=== PATIENT | female | born 1990 | race Caucasian/White ===

== ENCOUNTER 2016-11-20 07:25 | Emergency (ER) | payer MEDICAID ==
--- NOTE | 2016-11-20 08:18 | ER Document Report ---
ED GI/ - General Information source: Patient TRAVEL OUTSIDE OF THE [place]. IN LAST 30 DAYS: No - HPI Patient complains to provider of: Vaginal bleeding, Vaginal discharge Onset: Yesterday Timing/Duration: Gradual, Worse Quality of pain: Cramping Vaginal bleeding (Compared to normal period): Heavier, Passing clots Para: 1 Associated symptoms: Vaginal discharge <JOEL QUESADA - Last Filed: 11/20/16 08:31> <VERONICA CONTRERAS - Last Filed: 11/20/16 11:03> - General Chief Complaint: Abdominal Pain Stated Complaint: ABDOMINAL PAIN Notes: Patient is a 26-year-old female presenting to the emergency department concerned of vaginal bleeding onset last night. Patient states that at approximately 3 AM she passed a sac with her vaginal bleeding, and her bleeding has worsened since then with multiple other small clots. Patient states that she has been cramping for the past 4-5 days, and now she is experiencing pain in her abdomen and back. Patient has a history of miscarriage, most recent being 04/16/2016. Patient was seen here 09/30/2016 where she had a positive test, but there was nothing visible on the ultrasound. (JOEL QUESADA) - Related Data Allergies/Adverse Reactions: amoxicillin [Amoxicillin] Allergy (Verified 11/20/16 07:30) clindamycin Allergy (Verified 11/20/16 07:30) hydrocortisone Allergy (Verified 11/20/16 07:30) Penicillins Allergy (Verified 11/20/16 07:30) Past Medical History - General Information source: Patient - Social History Smoking Status: Current Every Day Smoker Chew tobacco use (# tins/day): No Frequency of alcohol use: None Drug Abuse: None Family History: Reviewed & Not Pertinent Patient has suicidal ideation: No Patient has homicidal ideation: No Renal/ Medical History: Reports: Other - Miscarriage Psychiatric Medical History: Reports: Hx Anxiety, Hx Depression Past Surgical History: Reports: Hx Section - 2009 emergency - Immunizations Hx Diphtheria, Pertussis, Tetanus Vaccination: Yes <JOEL QUESADA - Last Filed: 11/20/16 08:31> Review of Systems - Review of Systems Constitutional: No symptoms reported EENT: No symptoms reported Cardiovascular: No symptoms reported Respiratory: No symptoms reported Gastrointestinal: See HPI, Abdominal pain - with accompanied back pain Genitourinary: No symptoms reported Female Genitourinary: See HPI, , Vaginal discharge, Vaginal bleeding, Other - Cramping Musculoskeletal: No symptoms reported Skin: No symptoms reported Hematologic/Lymphatic: No symptoms reported Neurological/Psychological: No symptoms reported -: Yes All other systems reviewed and negative <JOEL QUESADA - Last Filed: 11/20/16 08:31> Physical Exam - Vital signs Interpretation: Tachycardic - General General appearance: Alert - HEENT Head: Normocephalic, Atraumatic Eyes: Normal Pupils: PERRL - Respiratory Respiratory status: No respiratory distress Chest status: Nontender Breath sounds: Normal Chest palpation: Normal - Cardiovascular Rhythm: Regular Heart sounds: Normal auscultation Murmur: No - Abdominal Inspection: Obese Distension: No distension Bowel sounds: Normal Tenderness: Tender - Diffuse tenderness to palpation Organomegaly: No organomegaly - Back Back: Normal, Nontender - Extremities General upper extremity: Normal inspection, Nontender, Normal color, Normal ROM , Normal temperature General lower extremity: Normal inspection, Nontender, Normal color, Normal ROM , Normal temperature - Neurological Neuro grossly intact: Yes Cognition: Normal [place] Coma Scale Eye Opening: Spontaneous Saroj Coma Scale Verbal: Oriented [place] Coma Scale Motor: Obeys Commands [place] Coma Scale Total: 15 Speech: Normal - Psychological Associated symptoms: Normal affect, Tearful - Skin Skin Temperature: Warm Skin Moisture: Dry Skin Color: Normal <JOEL QUESADA - Last Filed: 11/20/16 08:31> Course - Laboratory Result Diagrams: 11/20/16 08:44 11/20/16 08:44 <VERONICA CONTRERAS - Last Filed: 11/20/16 11:03> - Vital Signs Vital signs: Temp Pulse Resp BP Pulse Ox 98.5 F 110 H 16 132/76 H 100 11/20/16 07:30 11/20/16 07:30 11/20/16 07:30 11/20/16 07:30 11/20/16 07:30 (JOEL QUESADA) (VERONICA CONTRERAS) - Laboratory Laboratory results interpreted by me: 11/20/16 11/20/16 08:44 08:44 WBC 10.7 H RBC 3.29 L Hgb 10.5 L Hct 30.5 L AST 13 L Total Protein 5.7 L Albumin 3.2 L Beta HCG, Quant 43599.00 H (VERONICA CONTRERAS) Discharge <JOEL QUESADA - Last Filed: 11/20/16 08:31> <VERONICA CONTRERAS - Last Filed: 11/20/16 11:03> - Discharge Clinical Impression: Missed Condition: Stable Disposition: HOME, SELF-CARE Additional Instructions: Miscarriage: You have PROBABLY had a miscarriage (medically called a "spontaneous "). The miscarriage occurred because the fetus did not develop normally. There is nothing you did to cause it, and nothing you could have done to prevent it. About one in four ends in miscarriage. You should rest in bed for two or three days. As there is some risk of infection of the uterus, you should not have intercourse for one week (or until okayed by your physician). You might not have a period for six to eight weeks. You should not become again for at least three months -- the uterus requires time to get back to normal. Call the doctor or return for re-examination if there is heavy or persistent vaginal bleeding, fever, foul discharge, continued cramping pains, or abdominal pain. //////////////////////////////////////////////////////////////////////////////// //////////////////////////////////////////////////////////////////////////////// ///////////////// The ultrasound did not show a , it did show thickened endometrium which is suggestive of a recent and miscarriage. The hormone level was low for dates. You will need repeat hormone level testing to ensure if the level is returning back to zero. Follow-up with your doctor, or with [facility] on Thursday. RETURN TO THE EMERGENCY ROOM IF ANY NEW OR WORSENING SYMPTOMS. Referrals: TERRELL VERONICA MD [Primary Care Provider] - Follow up in 3-5 days [facility] [Provider Group] - Follow up in 3-5 days Scribe Attestation: 11/20/16 11:03 I personally performed the services described in the documentation, reviewed and edited the documentation which was dictated to the scribe in my presence, and it accurately records my words and actions. (VERONICA CONTRERAS) Scribe Documentation <JOEL QUESADA - Last Filed: 11/20/16 08:31> <VERONICA CONTRERAS - Last Filed: 11/20/16 11:03> - Scribe Written by Scribe:: VERONICA CONTRERAS MD, SCRIBE 11/20/16 1059 Acting as scribe for: Dr. Contreras (JOEL QUESADA) (VERONICA CONTRERAS)
[2016-11-20 09:02] LABS: ABSOLUTE EOSINOPHILS # (AUTO) 0.3 10^3/uL (0.0-0.6); ABSOLUTE LYMPHOCYTES (AUTO) 1.7 10^3/uL (0.5-4.7); ABSOLUTE MONOCYTES (AUTO) 0.8 10^3/uL (0.1-1.4); ABSOLUTE NEUT (AUTO) 7.9 10^3/uL (1.7-8.2); BASOPHILS % (AUTO) 0.5 % (0-2); EOSINOPHILS % (AUTO) 3.1 % (0-6); HEMATOCRIT 30.5 % (36.0-47.0); HEMOGLOBIN 10.5 g/dL (12.0-15.5); LYMPHOCYTES % (AUTO) 15.6 % (13-45); MEAN CORPUSCULAR HGB CONC 34.5 g/dL (32.0-36.0); MEAN CORPUSCULAR VOLUME 93 fl (80-97); MONOCYTES % (AUTO) 7.4 % (3-13); RED BLOOD COUNT 3.29 10^6/uL (3.72-5.28); RED CELL DISTRIBUTION WIDTH 12.8 % (11.5-14.0); SEGMENTED NEUTROPHILS % (AUTO) 73.4 % (42-78); WHITE BLOOD COUNT 10.7 10^3/uL (4.0-10.5)
[2016-11-20 09:23] LABS: ALANINE AMINOTRANSFERASE 11 U/L (9-52); ALBUMIN 3.2 g/dL (3.5-5.0); ALKALINE PHOSPHATASE 55 U/L (38-126); ANION GAP 11 (5-19); ASPARTATE AMINO TRANSFERASE 13 U/L (14-36); BILIRUBIN,TOTAL 0.4 mg/dL (0.2-1.3); BLOOD UREA NITROGEN 7 mg/dL (7-20); CALCIUM 8.9 mg/dL (8.4-10.2); CARBON DIOXIDE 23 mmol/L (22-30); CHLORIDE 105 mmol/L (98-107); GLUCOSE 80 mg/dL (75-110); POTASSIUM 3.8 mmol/L (3.6-5.0); SODIUM 138.8 mmol/L (137-145); TOTAL PROTEIN 5.7 g/dL (6.3-8.2)
[2016-11-20] MEDS ORDERED: HYDROCODONE/ACETAMINOPHEN 5-325 MG 6 TAB/DSPK PO PRN (11:10)
[2016-11-20 11:18] VITALS: BP 124/83
== END 2016-11-20 11:18 | disposition home or self-care (01) ==
LOC: ER 07:25
DX: O02.1 Missed abortion (principal); R10.9 Unspecified abdominal pain; N93.9 Abnormal uterine and vaginal bleeding, unspecified; F17.210 Nicotine dependence, cigarettes, uncomplicated
CPT/HCPCS: 36415; 76817; 80053; 84702; 85025; 99284

== ENCOUNTER 2017-03-15 12:08 | Emergency (ER) | payer MEDICAID ==
--- NOTE | 2017-03-15 12:32 | ER Document Report ---
HPI - HPI Patient complains to provider of: insect bite Pain Level: 3 Context: 26 yo female c/o spider bite to left thigh x 1 day. Associated Symptoms: None Exacerbated by: Denies Relieved by: Denies Similar symptoms previously: No - ROS Systems Reviewed and Negative: Yes All other systems reviewed and negative - REPRODUCTIVE Reproductive: DENIES: : - DERM Skin Color: Normal Past Medical History - General Information source: Patient - Social History Smoking Status: Current Every Day Smoker Frequency of alcohol use: None Drug Abuse: None Lives with: Family Family History: Reviewed & Not Pertinent Patient has suicidal ideation: No Patient has homicidal ideation: No Renal/ Medical History: Denies: Hx Peritoneal Dialysis Psychiatric Medical History: Reports: Hx Anxiety, Hx Depression Past Surgical History: Reports: Hx Section - 2009 emergency - Immunizations Hx Diphtheria, Pertussis, Tetanus Vaccination: Yes Vertical Provider Document - CONSTITUTIONAL Agree With Documented VS: Yes Exam Limitations: No Limitations - INFECTION CONTROL TRAVEL OUTSIDE OF THE [place] IN LAST 30 DAYS: No - HEENT HEENT: Atraumatic, PERRLA - NECK Neck: Normal Inspection, Supple - RESPIRATORY Respiratory: Breath Sounds Normal, No Respiratory Distress O2 Sat by Pulse Oximetry: 100 - CARDIOVASCULAR Cardiovascular: Regular Rate, Regular Rhythm - NEURO Level of Consciousness: Awake, Alert - DERM Integumentary: Warm, Dry, Rash - discrete 2mm erosive lesion to left anterior thigh. mild surrounding erythema. no lymphangitis. no drainage. Course - Vital Signs Vital signs: Temp Pulse Resp BP Pulse Ox 98.4 F 80 20 128/67 H 100 03/15/17 12:11 03/15/17 12:11 03/15/17 12:11 03/15/17 12:11 03/15/17 12:11 Discharge - Discharge Clinical Impression: Insect bite Qualifiers: Encounter type: initial encounter Qualified Code(s): W57.XXXA - Bitten or stung by nonvenomous insect and other nonvenomous arthropods, initial encounter Condition: Stable Disposition: HOME, SELF-CARE Instructions: Insect Bites ([facility]), Antibiotic Therapy ([facility]), Antibiotic Ointment Protection ([facility]), Ultram ([facility]) Additional Instructions: clean wound with antibacterial soap and water, apply topical antibiotic after cleaning take oral antibiotics as prescribed follow up with primary care or return to ER for any worsening Prescriptions: Clindamycin HCl [Cleocin HCl] 150 mg PO QID #20 capsule Tramadol HCl [Ultram 50 mg Tablet] 50 mg PO Q4H PRN #15 tablet PRN Reason: Forms: Return to Work
[2017-03-15 12:52] VITALS: BP 126/81
== END 2017-03-15 12:51 | disposition home or self-care (01) ==
LOC: ER 12:08
DX: T63.301A Toxic effect of unspecified spider venom, accidental (unintentional), initial encounter (principal); F17.200 Nicotine dependence, unspecified, uncomplicated
CPT/HCPCS: 99281

== ENCOUNTER → 2017-03-23 | Outpatient (CLI) | payer MEDICAID | LOC: LAB 11:14 | DX: O02.1 Missed abortion (principal) | CPT/HCPCS: 36415; 84702 ==

== ENCOUNTER → 2017-04-08 | Outpatient (CLI) | payer MEDICAID ==
--- NOTE | 2017-04-08 15:30 | RADIOLOGY REPORT (SQ) ---
EXAM DESCRIPTION: U/S OB TRANSVAGINAL W/O DOP COMPLETED DATE/TIME: 04/08/2017 3:18 pm REASON FOR STUDY: ENCOUNTER FOR SUPERVISION OF OTHER NORMAL Z34.81 ENCOUNTER FOR SUPRVSN OF NORMAL , FIRST TRIM COMPARISON: None. TECHNIQUE: Transvaginal static and realtime grayscale images acquired of the pelvis. Additional deisy cted spectral and color Doppler images recorded. All images stored on PACs. bHCG: Not available. LIMITATIONS: None. FINDINGS: FETUS: Living intrauterine . EGA: 7 week 1 day. ATTILA: 11/24/2017. FHR: 131 beats per minute. SUBCHORIONIC BLEED: No. SIZE OF BLEED: Not applicable. UTERUS: No masses. No anomalies. CERVICAL LENGTH: 4.4 cm. Closed. RIGHT ADNEXA: Normal ovary with normal vascular flow. No adnexal free fluid. No adnexal masses. LEFT ADNEXA: Normal ovary with normal vascular flow. No adnexal free fluid. No adnexal masses. FREE FLUID: Small amount of free fluid. OTHER: No other significant finding. IMPRESSION: LIVING INTRAUTERINE . EGA 7 WEEK 1 DAY. Trimester of : First - 0 to 13 weeks. TECHNICAL DOCUMENTATION: JOB ID: [id number] [employer]- All Rights Reserved
== END ==
LOC: RAD 14:23
PROVIDERS: ATTEND Nurse Practitioner Women's Health
DX: Z34.81 Encounter for supervision of other normal pregnancy, first trimester (principal)
CPT/HCPCS: 76817

== ENCOUNTER 2017-04-24 04:27 | Emergency (ER) | payer MEDICAID ==
[2017-04-24] MEDS ORDERED: METOCLOPRAMIDE HCL INJ/PF 10 MG/2 ML SDV IV ONE ×2 (05:09→08:21)
[2017-04-24] MEDS ORDERED: NORMAL SALINE 1000 ML 1,000 ML IV ONE ×2 (05:09)
[2017-04-24] MEDS ORDERED: DIPHENHYDRAMINE HCL 50 MG/ML VIAL IV ONE (05:09)
--- NOTE | 2017-04-24 05:13 | ER Document Report ---
ED Medical Screen (RME) - General Chief Complaint: Vomiting Stated Complaint: VOMITING/7 WEEKS Notes: 27 year old female, at 10 weeks gestation by LMP from home test, reports 3 days of vomiting with abdominal cramping mainly in her upper abdomen. Denies fever. No daily meds. PMH of complicated first , no other medical history reported. She denies alcohol use. TRAVEL OUTSIDE OF THE [place] IN LAST 30 DAYS: No - Related Data Allergies/Adverse Reactions: amoxicillin [Amoxicillin] Allergy (Verified 03/15/17 12:13) clindamycin Allergy (Verified 03/15/17 12:13) hydrocortisone Allergy (Verified 03/15/17 12:13) Penicillins Allergy (Verified 03/15/17 12:13) Past Medical History Renal/ Medical History: Denies: Hx Peritoneal Dialysis Psychiatric Medical History: Reports: Hx Anxiety, Hx Depression Past Surgical History: Reports: Hx Section - 2008 emergency - Immunizations Hx Diphtheria, Pertussis, Tetanus Vaccination: Yes Physical Exam - Vital signs Vitals: Temp Pulse Resp BP Pulse Ox 98.0 F 88 20 135/86 H 98 04/24/17 04:32 04/24/17 04:32 04/24/17 04:32 04/24/17 04:32 04/24/17 04:32 - General General appearance: Anxious - patient vomited in the room - Abdominal Tenderness: Tender - tender in upper abdomen mildly and slightly more tender in LUQ; no guarding Course - Vital Signs Vital signs: Temp Pulse Resp BP Pulse Ox 98.0 F 88 20 135/86 H 98 04/24/17 04:32 04/24/17 04:32 04/24/17 04:32 04/24/17 04:32 04/24/17 04:32
[2017-04-24 05:52] LABS: ALANINE AMINOTRANSFERASE 35 U/L (9-52); ALKALINE PHOSPHATASE 85 U/L (38-126); ANION GAP 18 (5-19); ASPARTATE AMINO TRANSFERASE 25 U/L (14-36); BILIRUBIN,DIRECT 0.3 mg/dL (0.0-0.4); BILIRUBIN,TOTAL 1.1 mg/dL (0.2-1.3); BLOOD UREA NITROGEN 14 mg/dL (7-20); CALCIUM 10.4 mg/dL (8.4-10.2); CARBON DIOXIDE 17 mmol/L (22-30); CHLORIDE 103 mmol/L (98-107); CREATININE RESULT 0.65 mg/dL (0.52-1.25); GLUCOSE 133 mg/dL (75-110); POTASSIUM 3.8 mmol/L (3.6-5.0); SODIUM 138.1 mmol/L (137-145); TOTAL PROTEIN 8.4 g/dL (6.3-8.2)
[2017-04-24 06:07] LABS: HEMATOCRIT 47.8 % (36.0-47.0); HEMOGLOBIN 15.9 g/dL (12.0-15.5); HGB HCT DIFFERENCE -0.1; MEAN CORPUSCULAR HEMOGLOBIN 30.3 pg (27.0-33.4); MEAN CORPUSCULAR HGB CONC 33.3 g/dL (32.0-36.0); MEAN CORPUSCULAR VOLUME 91 fl (80-97); RED BLOOD COUNT 5.24 10^6/uL (3.72-5.28); RED CELL DISTRIBUTION WIDTH 14.6 % (11.5-14.0); WHITE BLOOD COUNT 22.5 10^3/uL (4.0-10.5)
[2017-04-24 06:10] LABS: BASOPHILS % (MANUAL) 0 % (0-2); EOSINOPHILS % (MANUAL) 0 % (0-6); LYMPHOCYTES % (MANUAL) 3 % (13-45); TOTAL CELLS COUNTED 100
[2017-04-24 06:11] LABS: OVALOCYTES SLIGHT; POIKILOCYTOSIS SLIGHT; TOXIC GRANULATION SLIGHT
[2017-04-24] MEDS ORDERED: DEXTROSE 5%-LACTATED RINGERS 1,000 ML IV ONE (06:44)
[2017-04-24 06:47] LABS: APPEARANCE,URINE CLOUDY; BILIRUBIN,URINE SMALL (NEGATIVE); GLUCOSE, URINE NEGATIVE (NEGATIVE); KETONES,URINE 80 mg/dL (NEGATIVE); LEUKOCYTE ESTERASE,URINE NEGATIVE (NEGATIVE); NITRITE,URINE NEGATIVE (NEGATIVE); PROTEIN,URINE 100 mg/dL (NEGATIVE); URINE SPECIFIC GRAVITY 1.034; UROBILINOGEN,URINE NEGATIVE mg/dL (<2.0)
--- NOTE | 2017-04-24 06:47 | ER Document Report ---
ED GI/ - General Mode of Arrival: Ambulatory Information source: Patient TRAVEL OUTSIDE OF THE [place] IN LAST 30 DAYS: No - HPI Patient complains to provider of: Vomiting Onset: Other - 3 days ago Timing/Duration: Sudden, Persistent : 2 Para: 1 Abortions: 0 <JOEL QUESADA - Last Filed: 04/24/17 07:14> <VERONICA CONTRERAS - Last Filed: 04/24/17 10:21> - General Chief Complaint: Vomiting Stated Complaint: VOMITING/7 WEEKS Time Seen by Provider: 04/24/17 06:35 Notes: Patient is a almost 10 weeks female presenting to the emergency department with chief complaint of nausea and vomiting onset approximately 3 days ago. Patient states that usually she only experiences a brief morning sickness, and is able to go about her day after she drinks orange juice and goes for a walk. However, the past 3 days she is not been able to eat very much , and has been dry heaving. Patient states that she feels a lot better after receiving Reglan and 2 L of fluid on arrival to the emergency department. Patient reports quitting smoking approximately 2 weeks ago and having an emergency back in March 2009 (JOEL QUESADA) - Related Data Allergies/Adverse Reactions: amoxicillin [Amoxicillin] Allergy (Verified 03/15/17 12:13) clindamycin Allergy (Verified 03/15/17 12:13) hydrocortisone Allergy (Verified 03/15/17 12:13) Penicillins Allergy (Verified 03/15/17 12:13) Past Medical History - General Information source: Patient - Social History Smoking Status: Former Smoker - Quit 2 weeks ago Family History: Reviewed & Not Pertinent Patient has suicidal ideation: No Patient has homicidal ideation: No Psychiatric Medical History: Reports: Hx Anxiety, Hx Depression Past Surgical History: Reports: Hx Section - March 2009 emergency - Immunizations Hx Diphtheria, Pertussis, Tetanus Vaccination: Yes <JOEL QUESADA - Last Filed: 04/24/17 07:14> Review of Systems - Review of Systems Constitutional: No symptoms reported EENT: No symptoms reported Cardiovascular: No symptoms reported Respiratory: No symptoms reported Gastrointestinal: See HPI, Nausea, Vomiting Genitourinary: No symptoms reported Female Genitourinary: See HPI, Musculoskeletal: No symptoms reported Skin: No symptoms reported Hematologic/Lymphatic: No symptoms reported Neurological/Psychological: No symptoms reported -: Yes All other systems reviewed and negative <JOEL QUESADA - Last Filed: 04/24/17 07:14> Physical Exam - General General appearance: Appears well, Alert - HEENT Head: Normocephalic, Atraumatic Eyes: Normal Pupils: PERRL - Respiratory Respiratory status: No respiratory distress Chest status: Nontender Breath sounds: Normal Chest palpation: Normal - Cardiovascular Rhythm: Regular Heart sounds: Normal auscultation Murmur: No - Abdominal Inspection: Gravid female - soft Distension: No distension Bowel sounds: Normal Tenderness: Nontender Organomegaly: No organomegaly - Back Back: Normal, Nontender - Extremities General upper extremity: Normal inspection, Nontender General lower extremity: Normal inspection, Nontender - Neurological Neuro grossly intact: Yes Cognition: Normal Orientation: AAOx4 Saroj Coma Scale Eye Opening: Spontaneous [place] Coma Scale Verbal: Oriented [place] Coma Scale Motor: Obeys Commands [place] Coma Scale Total: 15 Speech: Normal - Psychological Associated symptoms: Normal affect, Normal mood - Skin Skin Temperature: Warm Skin Moisture: Dry Skin Color: Normal <SANGITAJOEL - Last Filed: 04/24/17 07:14> Course - Laboratory Result Diagrams: 04/24/17 05:25 04/24/17 05:25 <SANGITAJOEL - Last Filed: 04/24/17 07:14> - Laboratory Result Diagrams: 04/24/17 05:25 04/24/17 05:25 <VERONICA CONTRERAS - Last Filed: 04/24/17 10:21> - Re-evaluation Re-evalutation: 04/24/17 10:17 Patient has had 4 L of fluid. The most recent dose of Reglan helped nausea quite a bit. She feels much better and ready to go home. (VERONICA CONTRERAS) - Vital Signs Vital signs: Temp Pulse Resp BP Pulse Ox 98.0 F 88 20 135/86 H 98 04/24/17 04:32 04/24/17 04:32 04/24/17 04:32 04/24/17 04:32 04/24/17 04:32 - Laboratory Laboratory results interpreted by me: 04/24/17 04/24/17 04/24/17 05:25 05:25 06:25 WBC 22.5 H Hgb 15.9 H Hct 47.8 H RDW 14.6 H Seg Neuts % (Manual) 94 H Lymphocytes % (Manual) 3 L Abs Neuts (Manual) 21.2 H Carbon Dioxide 17 L Glucose 133 H Calcium 10.4 H Total Protein 8.4 H Urine Protein 100 H Urine Ketones 80 H Urine Bilirubin SMALL H Urine HCG, Qual POSITIVE H Discharge <JOEL QUESADA - Last Filed: 04/24/17 07:14> <VERONICA CONTRERAS - Last Filed: 04/24/17 10:21> - Discharge Clinical Impression: Hyperemesis gravidarum with dehydration Condition: Stable Disposition: HOME, SELF-CARE Additional Instructions: Hyperemesis Gravidarum: Hyperemesis gravidarum is the medical term for severe vomiting during . We don't know exactly why it occurs, but it's a common problem. Dehydration can occur. This reduces blood flow to the placenta, decreasing the baby's nourishment. The baby will also become dehydrated. There can be harmful changes in blood sodium, potassium, or acid balance. Our goal is to correct, and prevent, dehydration. For severe cases, we give IV fluids. Antinausea medication will be prescribed. (Don't be concerned about " defects" -- the risk to you and your baby from the hyperemesis is the biggest problem. The antinausea medication is very safe at this stage of .) Call the doctor if you have vaginal bleeding, abdominal pain, severe lightheadedness or weakness, or other alarming symptoms. TAKE THE MEDICATION PRESCRIBED FOR NAUSEA. SUPPLEMENT WITH BENADRYL IF NEEDED. FOLLOW UP WITH [facility] IF NOT IMPROVING. RETURN TO THE EMERGENCY ROOM IF ANY NEW OR WORSENING SYMPTOMS. Prescriptions: Metoclopramide HCl [Reglan 10 mg Tablet] 10 mg PO Q4 PRN #20 tablet PRN Reason: Referrals: [facility] [Provider Group] - Follow up as needed Scribe Attestation: 04/24/17 10:20 I personally performed the services described in the documentation, reviewed and edited the documentation which was dictated to the scribe in my presence, and it accurately records my words and actions. (VERONICA CONTRERAS) Scribe Documentation - Scribe Written by Scribe:: Fred Blum, 04/14/2017 0645 acting as scribe for :: Carla <JOEL QUESADA - Last Filed: 04/24/17 07:14>
[2017-04-24] MEDS ORDERED: RINGERS SOLUTION,LACTATED 1,000 ML IV ONE (07:32)
[2017-04-24 10:40] VITALS: BP 121/63
== END 2017-04-24 10:41 | disposition home or self-care (01) ==
LOC: ER 04:27
DX: O21.1 Hyperemesis gravidarum with metabolic disturbance (principal); Z3A.09 9 weeks gestation of pregnancy; Z88.0 Allergy status to penicillin; Z88.3 Allergy status to other anti-infective agents; Z87.891 Personal history of nicotine dependence
CPT/HCPCS: 96376; 99283; 96361; 96375; 96365; 96366; 36415; 85025; 81025; 80053; 81001; J1200; J2765; J7030; J7120

== ENCOUNTER 2017-10-27 12:43 | Outpatient (CLI) | payer MEDICAID ==
--- NOTE | 2017-10-27 14:44 | Non Stress Test Report ---
Non Stress Test Datetime Report Generated by CPN: 10/27/2017 14:44 DEMOGRAPHIC EGA NST: 36.2 INDICATION Indication for Study: Ordered by Provider MONITORING Monitor Explained: Monitor Explained; Test Explained; Patient Verbalized Understanding Monitor Explained: Monitor Explained; Test Explained; Patient Verbalized Understanding Time on Monitor: 10/27/2017 12:53 Time on Monitor: 10/27/2017 12:53 Time off Monitor: 10/27/2017 14:26 NST Duration: 93 NST INTERVENTIONS NST Interventions: PO Hydration; Reposition Patient NST Interventions: PO Hydration; Reposition Patient Physician Notified NST: C Frost CNM BABY A: [id number] BABY A Movement : Present Contraction Frequency : none FHR Baseline : 145 Accelerations : 15X15 Decelerations : None Variability : Moderate 6-25bpm NST Review: Meets Criteria for Reactive NST NST Review and Verified By : Gisell Krueger [facility] NST Results: Reactive NST REPORT Report Trigger: Send Report
== END 2017-10-27 14:35 | disposition home or self-care (01) ==
LOC: LC 12:43
PROVIDERS: ATTEND Obstetrics & Gynecology
PROC: 4A1HXCZ Monitoring of Products of Conception, Cardiac Rate, External Approach (ICD-10-PCS; principal; 2017-10-27)
DX: Z34.93 Encounter for supervision of normal pregnancy, unspecified, third trimester (principal)
CPT/HCPCS: 59025

== ENCOUNTER 2017-10-29 11:38 | Outpatient (CLI) | payer MEDICAID ==
--- NOTE | 2017-10-29 12:25 | Non Stress Test Report ---
Non Stress Test Datetime Report Generated by CPN: 10/29/2017 12:25 DEMOGRAPHIC EGA NST: 36.4 INDICATION Indication for Study: Ordered by Provider VITAL SIGNS Temperature - NST: 97.6 Pulse - NST: 76 RESP - NST: 16 NBPSYS NST: 116 NBPDIA NST: 64 MONITORING Monitor Explained: Monitor Explained; Test Explained; Patient Verbalized Understanding Time on Monitor: 10/29/2017 11:59 Time off Monitor: 10/29/2017 12:18 NST Duration: 19 NST INTERVENTIONS NST Interventions: PO Hydration; Reposition Patient Physician Notified NST: PJunior chatterjee, CNM BABY A: [id number] BABY A Movement : Present Contraction Frequency : none FHR Baseline : 145 Accelerations : 15X15 Decelerations : None Variability : Moderate 6-25bpm NST Review: Meets Criteria for Reactive NST NST Review and Verified By : ANNIKA Barillas Results: Reactive NST REPORT Report Trigger: Send Report
== END 2017-10-29 12:20 | disposition home or self-care (01) ==
LOC: LC 11:38
PROVIDERS: ATTEND Student in an Organized Health Care Education/Training Program
PROC: 4A1HXCZ Monitoring of Products of Conception, Cardiac Rate, External Approach (ICD-10-PCS; principal; 2017-10-29)
DX: O34.212 Maternal care for vertical scar from previous cesarean delivery (principal); Z3A.36 36 weeks gestation of pregnancy
CPT/HCPCS: 59025

== ENCOUNTER 2017-11-03 05:11 | Inpatient (IN) | payer MEDICAID ==
[2017-10-29 11:09] LABS: APPEARANCE,URINE SLIGHTLY-CLOUDY; BILIRUBIN,URINE NEGATIVE (NEGATIVE); COLOR,URINE YELLOW; GLUCOSE, URINE NEGATIVE (NEGATIVE); KETONES,URINE NEGATIVE (NEGATIVE); LEUKOCYTE ESTERASE,URINE NEGATIVE (NEGATIVE); NITRITE,URINE NEGATIVE (NEGATIVE); PROTEIN,URINE NEGATIVE (NEGATIVE); URINE SPECIFIC GRAVITY 1.005; UROBILINOGEN,URINE NEGATIVE mg/dL (<2.0)
[2017-10-29 11:14] LABS: ABSOLUTE EOSINOPHILS # (AUTO) 0.1 10^3/uL (0.0-0.6); ABSOLUTE LYMPHOCYTES (AUTO) 2.1 10^3/uL (0.5-4.7); ABSOLUTE MONOCYTES (AUTO) 0.7 10^3/uL (0.1-1.4); BASOPHILS % (AUTO) 0.4 % (0-2); EOSINOPHILS % (AUTO) 0.8 % (0-6); HEMATOCRIT 37.2 % (36.0-47.0); HEMOGLOBIN 12.7 g/dL (12.0-15.5); LYMPHOCYTES % (AUTO) 17.7 % (13-45); MEAN CORPUSCULAR HEMOGLOBIN 31.5 pg (27.0-33.4); MEAN CORPUSCULAR HGB CONC 34.2 g/dL (32.0-36.0); MEAN CORPUSCULAR VOLUME 92 fl (80-97); RED BLOOD COUNT 4.05 10^6/uL (3.72-5.28); SEGMENTED NEUTROPHILS % (AUTO) 75.1 % (42-78); TOTAL CELLS COUNTED % (AUTO) 100 %; WHITE BLOOD COUNT 11.9 10^3/uL (4.0-10.5)
[2017-10-29 11:26] LABS: URINE AMPHETAMINES SCREEN NEGATIVE; URINE BARBITURATES SCREEN NEGATIVE; URINE BENZODIAZEPINES SCREEN NEGATIVE; URINE COCAINE SCREEN NEGATIVE; URINE MARIJUANA (THC) SCREEN NEGATIVE; URINE METHADONE SCREEN NEGATIVE; URINE PHENCYCLIDINE SCREEN NEGATIVE
[2017-10-29 11:41] LABS: PLATELET COUNT 135 10^3/uL (150-450)
[~2017-11-03 05:11] MED LIST: LACTATED RINGERS 1000 ML IV PRN; LIDOCAINE 0.5% INJ-PF (5 MG/ML) 50 ML SDV SUBCUT PRN; RINGERS SOLUTION,LACTATED 2,000 ML IV PRN
[2017-11-03] MEDS ORDERED: KETAMINE HCL INJ 500 MG/10 ML VIAL ONE (07:20)
[2017-11-03] MEDS ORDERED: OXYTOCIN 10 UNIT/ML VIAL ONE (07:20)
[2017-11-03] MEDS ORDERED: EPHEDRINE SULFATE INJ 50 MG/1 ML AMPULE ONE (07:20)
[2017-11-03] MEDS ORDERED: MIDAZOLAM 2 MG/2 ML INJ ONE (07:21)
[2017-11-03] MEDS ORDERED: OXYTOCIN/NORMAL SALINE 20 UNIT/1,000 ML RTUINJ ONE (07:21)
[2017-11-03] MEDS ORDERED: FENTANYL CITRATE INJ/PF 100 MCG/2 ML AMPUL ONE ×2 (07:21→09:12)
[2017-11-03] MEDS ORDERED: ACETAMINOPHEN 100 ML IV ONE ×2 (07:26→10:00)
[2017-11-03] MEDS: CEFAZOLIN 2 GM/D5W RTU 2 GM/50 ML RTUPB IV ONE ×2 (07:40→11:17)
[2017-11-03] MEDS ORDERED: MORPHINE SULFATE 10 MG/ML INJ IV PRN (08:18)
[2017-11-03] MEDS ORDERED: DIPHENHYDRAMINE HCL 50 MG/ML VIAL IV PRN (08:18)
[2017-11-03] MEDS ORDERED: PROMETHAZINE HCL INJ 25 MG/1 ML VIAL IV PRN ×2 (08:18→09:23)
[2017-11-03] MEDS ORDERED: FENTANYL CITRATE INJ/PF 100 MCG/2 ML AMPUL IV PRN ×3 (08:18)
--- NOTE | 2017-11-03 09:21 | Brief Operative Note ---
BRIEF OPERATIVE REPORT DATE OF SURGERY: 11/03/17 TIME OF SURGERY: 09:00 PREOPERATIVE DIAGNOSIS: H/o Classical Section, 37+2ega, , Abnormal AFP, Normal NIPS POSTOPERATIVE DIAGNOSIS: MATTHEW - delivered SURGEON: ALFREDITO GARNER FINDINGS: classical incision from prior section visible, VMI delivered at 0823, weigth 6#6oz, Apars 8/, IVF 2850ml, UOP 200ml COMPLICATIONS: None ESTIMATED BLOOD LOSS: 600ml TISSUE REMOVED OR ALTERED: placenta and cord - not sent to pathology TECHNICAL PROCEDURE: Repeat LTCS
[2017-11-03] MEDS ORDERED: SIMETHICONE 80 MG TAB.CHEW PO PRN (09:23)
[2017-11-03] MEDS ORDERED: ACETAMINOPHEN 325 MG TABLET PO PRN (09:23)
[2017-11-03] MEDS ORDERED: OXYTOCIN/NORMAL SALINE 20 UNIT/1,000 ML RTUINJ IV PRN (09:23)
[2017-11-03] MEDS ORDERED: MEASLES,MUMPS&RUBELLA VACC/PF 0.5 ML VIAL SUBCUT PRN (09:23)
[2017-11-03] MEDS ORDERED: DIPH/PERTUSS(ACELL)/TETANUS VAC/PF 0.5 ML SYR (>=10YO) IM PRN (09:23)
[2017-11-03] MEDS ORDERED: OXYCODONE-ACETAMINOPHEN 5-325 MG TABLET PO PRN (09:23)
--- NOTE | 2017-11-03 09:44 | PDOC DELIVERY SUMMARY ---
Delivery Summary - Maternal Hx : III Hx # Term Pregnancies: 0 Hx # Pregnancies: 1 Hx Total # of Abortions (Sponateous & Elective): 1 Number of Living Children: 1 ATTILA: 11/22/17 Gestational Age: 37 Risk Factors: Previous Ruptured Membranes: AROM Time of Rupture: 08:21 Fluids: Clear - Delivery Labor: Not In Labor Presentation: Vertex Heart Rate Monitoring: Done Pre-Operatively Uterine Contraction Monitoring: External Support Person Present: Yes Location: OR : Scheduled Placenta: Within Normal Limits Placenta Description: normal Number of Vessels (Cord): 3 Nuchal Cord: Yes Delivery of Placenta Date: 11/03/17 Delivery of Placenta Time: 08:24 - Medications Type of Anesthesia:: Spinal - Delivery Medications Delivery Meds Comment: Pitocin - Infant Assess and Care Baby 1 Male Delivery of Infant Date: 11/03/17 Delivery of Time: 08:23 at 1 minute: 8 at 5 minutes: 9 Preprinted Number On Band: [id number] To Nursery At: 08:31 Mode of Transport: Bassinet Delivery Weight: 2,895 Delivery Length: 20 in - Delivery Personnel Agriculture Science Teacher: DR GARFIELD Cook RN: ALEN CROWDER RN: ABDIEL CUELLO MD: ALFREDITO GARNER
[2017-11-03] MEDS ORDERED: KETOROLAC TROMETHAMINE INJ/PF 30 MG/1 ML SDV ONE (10:15)
[2017-11-03] MEDS: KETOROLAC TROMETHAMINE INJ/PF 30 MG/1 ML SDV IV SCH ×2 (10:17→17:16)
[2017-11-03] MEDS ORDERED: HYDROMORPHONE HCL INJ/PF 2 MG/ML AMPULE ONE (10:29)
[2017-11-03] MEDS: DOCUSATE SODIUM 100 MG CAPSULE PO SCH ×3 (11:17→17:18)
[2017-11-03] MEDS: PRENATAL VITAMIN W DHA CAPSULE PO SCH (11:17)
[2017-11-03] MEDS: OXYCODONE-ACETAMINOPHEN 5-325 MG TABLET PO PRN ×2 (11:49→19:20)
[2017-11-03] MEDS ORDERED: PHENYLEPHRINE HCL INJ/PF 10 MG/1 ML SDV ONE (13:38)
[2017-11-03] MEDS ORDERED: LIDOCAINE 2% INJ-PF (20 MG/ML) 2 ML AMPUL ONE (13:38)
[2017-11-03] MEDS ORDERED: ONDANSETRON HCL INJ/PF 4 MG/2 ML SDV ONE (13:38)
[2017-11-03] MEDS ORDERED: GLYCOPYRROLATE INJ 0.4 MG/2 ML VIAL ONE (13:38)
[2017-11-03] MEDS: HYDROMORPHONE HCL INJ/PF 2 MG/ML AMPULE IV PRN ×2 (15:03→20:25)
[2017-11-04] MEDS: OXYCODONE-ACETAMINOPHEN 5-325 MG TABLET PO PRN ×5 (00:35→23:49)
[2017-11-04] MEDS: KETOROLAC TROMETHAMINE INJ/PF 30 MG/1 ML SDV IV SCH (02:06)
[2017-11-04] MEDS: HYDROMORPHONE HCL INJ/PF 2 MG/ML AMPULE IV PRN (03:47)
[2017-11-04 06:35] LABS: HEMOGLOBIN 10.9 g/dL (12.0-15.5); MEAN CORPUSCULAR VOLUME 91 fl (80-97); PLATELET COUNT 106 10^3/uL (150-450); RED BLOOD COUNT 3.52 10^6/uL (3.72-5.28); RED CELL DISTRIBUTION WIDTH 14.1 % (11.5-14.0)
[2017-11-04] MEDS: IBUPROFEN 800 MG TABLET PO SCH ×4 (06:50→23:53)
[2017-11-04] MEDS: DOCUSATE SODIUM 100 MG CAPSULE PO SCH ×4 (09:23→17:50)
[2017-11-04] MEDS: PRENATAL VITAMIN W DHA CAPSULE PO SCH ×2 (09:23→11:11)
--- NOTE | 2017-11-04 09:36 | PDOC PROGRESS REPORT ---
Subjective-OB Subjective: Post Delivery Day: 27 year old. Denies any needs at this time Doing well, eating well, normal lochia, bottle feeding Physical Exam (OB) Vital Signs: Temp Pulse Resp BP Pulse Ox 98.3 F 75 18 123/71 100 11/04/17 09:05 11/04/17 09:05 11/04/17 09:05 11/04/17 09:05 11/04/17 09:05 Intake & Output 11/03/17 11/04/17 11/05/17 06:59 06:59 06:59 Intake Total 3910 Output Total 1350 Balance 2560 Weight 92.533 kg - PIH/Pre-Eclampsia DTR's: 2 + Clonus: Negative Headache: Absent Epigastric Pain: No Visual Changes: No - Dressing Removed: No Incision: Well Approximated Closure Type: Surgical Glue - Lochia Lochia Amount: Scant < 10 ml Lochia Color: Rubra/Red - Abdomen Description: Soft, Round Hernia Present: No Fundal Description: Firm, Midline Fundal Height: u/u - u/2 Objective-Diagnostic Laboratory: 11/04/17 06:26 11/04/17 06:26 WBC 13.0 H RBC 3.52 L Hgb 10.9 L Hct 32.0 L MCV 91 MCH 31.0 MCHC 34.0 RDW 14.1 H Plt Count 106 L Assessment and Plan(PN) - Assessment and Plan (1) Delivery by section using transverse incision of lower segment of uterus Is this a current diagnosis for this admission?: Yes - Time Spent with Patient Time with patient: Less than 15 minutes Smoking Education Provided: Over 3 minutes Medications reviewed and adjusted accordingly: Yes - Disposition Anticipated Discharge: Home Within: within 24 hours
[2017-11-05] MEDS: OXYCODONE-ACETAMINOPHEN 5-325 MG TABLET PO PRN ×5 (05:16→22:26)
[2017-11-05] MEDS: IBUPROFEN 800 MG TABLET PO SCH ×3 (05:16→17:38)
[2017-11-05] MEDS: PRENATAL VITAMIN W DHA CAPSULE PO SCH ×2 (08:43→09:15)
[2017-11-05] MEDS: DOCUSATE SODIUM 100 MG CAPSULE PO SCH ×4 (08:43→17:38)
--- NOTE | 2017-11-05 11:04 | PDOC PROGRESS REPORT ---
Subjective-OB Subjective: Post Delivery Day: 27 year old. Denies any needs at this time. bottle feeding, tolerating diet, voiding and passing gas, bleeding slowing and pain controlled with current medications. Physical Exam (OB) Vital Signs: Temp Pulse Resp BP Pulse Ox 98.1 F 85 18 133/75 H 99 11/05/17 07:58 11/05/17 07:58 11/05/17 07:58 11/05/17 07:58 11/05/17 07:58 Intake & Output 11/04/17 11/05/17 11/06/17 06:59 06:59 06:59 Intake Total 3910 1935 Output Total 1350 Balance 2560 1935 - Dressing Removed: No Incision: Open, Well Approximated Closure Type: Surgical Glue - Abdomen Description: Soft Hernia Present: No Fundal Description: Firm, Midline Fundal Height: u/u - u/2 - Abdominal Tenderness: Nontender - Extremities Lower extremities: Victorina's sign - neg Ankle: Normal, Nontender Objective-Diagnostic Laboratory: 11/04/17 06:26 Assessment and Plan(PN) - Assessment and Plan (1) Delivery by section using transverse incision of lower segment of uterus Is this a current diagnosis for this admission?: Yes (2) Uterine scar from previous delivery Is this a current diagnosis for this admission?: Yes - Time Spent with Patient Time with patient: Less than 15 minutes Smoking Education Provided: Over 3 minutes Medications reviewed and adjusted accordingly: Yes - Disposition Anticipated Discharge: Home Within: within 24 hours
[2017-11-06] MEDS: OXYCODONE-ACETAMINOPHEN 5-325 MG TABLET PO PRN ×3 (03:26→12:06)
[2017-11-06] MEDS: IBUPROFEN 800 MG TABLET PO SCH ×3 (04:52→12:06)
[2017-11-06] MEDS: PRENATAL VITAMIN W DHA CAPSULE PO SCH ×2 (09:07→09:10)
[2017-11-06] MEDS: DOCUSATE SODIUM 100 MG CAPSULE PO SCH ×2 (09:07→09:10)
--- NOTE | 2017-11-06 13:36 | PDOC DISCHARGE SUMMARY ---
Final Diagnosis Discharge Date: 11/06/17 - Final Diagnosis (1) History of delivery Is this a current diagnosis for this admission?: Yes (2) Delivery by section using transverse incision of lower segment of uterus Is this a current diagnosis for this admission?: Yes (3) Uterine scar from previous delivery Is this a current diagnosis for this admission?: Yes (4) Acute blood loss anemia Is this a current diagnosis for this admission?: Yes Discharge Data - Discharge Medication Prescriptions: Oxycodone HCl/Acetaminophen [Percocet 5-325 mg Tablet] 2 tab PO Q4HP PRN #20 tablet PRN Reason: Ibuprofen [Motrin 800 mg Tablet] 800 mg PO Q8HP PRN #60 tablet PRN Reason: Docusate Sodium [Colace 100 mg Capsule] 100 mg PO BID #60 capsule Home Medications: Escitalopram Oxalate [Lexapro 10 mg Tablet] 1 tab PO DAILY 11/20/16 Pnv No.95/Ferrous Fum/Folic AC [ Multivitamin Tablet] 1 each PO DAILY Albuterol Sulfate [Proair HFA] 1 - 2 puff IH PRN PRN 10/29/17 Docusate Sodium [Colace 100 mg Capsule] 100 mg PO BID #60 capsule 11/06/17 Ibuprofen [Motrin 800 mg Tablet] 800 mg PO Q8HP PRN #60 tablet 11/06/17 Oxycodone HCl/Acetaminophen [Percocet 5-325 mg Tablet] 2 tab PO Q4HP PRN #20 tablet 11/06/17 Reason(s) for Admission: Ceasarean Section-Repeat Procedures: Ultrasound Intrapartum Procedure(s): : Low Cervical, Transverse - Diagnosis Test Laboratory: Temp Pulse Resp BP Pulse Ox 98.0 F 71 17 134/93 H 100 11/06/17 08:35 11/06/17 08:35 11/06/17 08:35 11/06/17 08:35 11/06/17 08:35 10/29/17 10/29/17 11/04/17 10:15 10:30 06:26 RBC 4.05 3.52 L Hgb 12.7 10.9 L Hct 37.2 32.0 L Urine Opiates Screen NEGATIVE - Discharge information/Instructions Discharge Activity: Activity As Tolerated, Balance Activity w/Rest, No Driving, No Lifting Over 10 Pounds, No Lifting/Push/Pulling, Pelvic Rest, No tub bath, Walk Frequently Discharge Diet: Regular Disposition: HOME, SELF-CARE Follow up with: [facility] in: 4, Days - bp and incision check
[2017-11-06 16:37] VITALS: BP 128/79
== END 2017-11-06 17:25 | disposition home or self-care (01) | DRG 765 ==
LOC: 2S 05:11
PROVIDERS: ADMIT Student in an Organized Health Care Education/Training Program; ATTEND Student in an Organized Health Care Education/Training Program
PROC: 10D00Z1 Extraction of Products of Conception, Low, Open Approach (ICD-10-PCS; principal; 2017-11-03 07:45)
DX: O34.211 Maternal care for low transverse scar from previous cesarean delivery (principal); D62 Acute posthemorrhagic anemia; N85.8 Other specified noninflammatory disorders of uterus; O99.52 Diseases of the respiratory system complicating childbirth; O99.02 Anemia complicating childbirth; O99.344 Other mental disorders complicating childbirth; J45.909 Unspecified asthma, uncomplicated; F41.8 Other specified anxiety disorders; Z3A.37 37 weeks gestation of pregnancy; Z37.0 Single live birth
CPT/HCPCS: 1961; 36415; 59025; 80307; 81001; 85025; 85027; 86850; 86900; 86901; 94799; C1765; J0131; J0690; J1170; J1885; J2250; J2370; J2405; J2590; J3010; J3490; J7120

== ENCOUNTER 2018-10-24 11:14 | Emergency (ER) | payer MEDICAID ==
[2018-10-24] MEDS ORDERED: MORPHINE SULFATE 10 MG/ML INJ IM ONE (11:20)
[2018-10-24] MEDS ORDERED: MORPHINE SULFATE 10 MG/ML INJ IV ONE (11:21)
[2018-10-24 11:22] VITALS: BP 112/75
--- NOTE | 2018-10-24 11:23 | ER Document Report ---
ED Fall - General Stated Complaint: FALL KNEE PAIN Time Seen by Provider: 10/24/18 11:19 TRAVEL OUTSIDE OF THE [place] IN LAST 30 DAYS: No - HPI Notes: Patient is a 28-year-old female that presents to the emergency department for chief complaint of left knee injury. Just prior to arrival patient was walking out her front step and slipped. She states her left knee hit the door frame. She has a history of patellar dislocations in the past and has completed physical therapy on a few occasions because of her recurrent patellar dislocations. She is complaining of a sharp pain in her left knee that is worse with movement. She did have some pain relief with Toradol that EMS gave just prior to arrival. She denies any numbness or tingling. Past Medical History: Negative Past Surgical History: x2 Social History: Really tobacco. Denies drugs and alcohol Family History: Reviewed and noncontributory for presenting illness Allergies: Reviewed, see documented allergy list. REVIEW OF SYSTEMS: CONSTITUTIONAL : No fever No chills No diaphoresis No recent illness EENT: No vision changes No congestion No sore throat CARDIOVASCULAR: No chest pain No palpitations RESPIRATORY: No shortness of breath No cough No difficulty breathing GASTROINTESTINAL: No abdominal pain No nausea No vomiting No diarrhea GENITOURINARY: No dysuria No hematuria No difficulty urinating MUSCULOSKELETAL: No back pain leg pain No arm pain SKIN: No rashes No lesions LYMPHATIC: No swollen, enlarged glands. NEUROLOGICAL: No lightheadedness No headache No weakness No paresthesias PSYCHIATRIC: No anxiety No depression PHYSICAL EXAMINATION: Vital signs reviewed, nursing noted reviewed. GENERAL: Well-appearing, well-nourished and in no acute distress. HEAD: Atraumatic, normocephalic. EYES: Eyes appear normal, extraocular movements intact, sclera anicteric, conjunctiva are normal. ENT: nares patent, oropharynx clear without exudates. Moist mucous membranes. NECK: Normal range of motion, supple without lymphadenopathy LUNGS: Breath sounds clear to auscultation bilaterally and equal. No wheezes rales or rhonchi. HEART: Regular rate and rhythm without murmurs. +2/4 bilateral DP pulse ABDOMEN: Soft, nontender, normoactive bowel sounds. No rebound, guarding, or rigidity. No masses appreciated. EXTREMITIES: Left knee tenderness to palpation diffusely, large knee effusion, no bony deformity, no patellar dislocation, normal range of motion., No joint laxity NEUROLOGICAL: No focal neurological deficits. Moves all extremities spontaneously Motor and sensory grossly intact on exam. PSYCH: Normal mood, normal affect. SKIN: Warm, Dry, normal turgor, no rashes or lesions noted on exposed skin - Related data Allergies/Adverse Reactions: amoxicillin [Amoxicillin] Allergy (Verified 10/24/18 11:21) Throat Swells, Hives hydrocortisone Allergy (Verified 10/24/18 11:21) Rash Penicillins Allergy (Verified 10/24/18 11:21) Throat Swells, Hives Past Medical History - Social History Smoking Status: Current Every Day Smoker Family History: Reviewed & Not Pertinent Pulmonary Medical History: Reports: Hx Asthma - albuterol inhaler prn Renal/ Medical History: Denies: Hx Peritoneal Dialysis GI Medical History: Reports: Hx Gastroesophageal Reflux Disease - during Psychiatric Medical History: Reports: Hx Anxiety, Hx Depression Past Surgical History: Reports: Hx Section - March 2009 emergency - Immunizations Hx Diphtheria, Pertussis, Tetanus Vaccination: Yes Hx Pneumococcal Vaccination: 03/09/13 Physical Exam - Vital signs Vitals: Temp Pulse Resp BP Pulse Ox 98.7 F 91 16 112/75 100 10/24/18 11:19 10/24/18 11:19 10/24/18 11:19 10/24/18 11:19 10/24/18 11:19 Course - Re-evaluation Re-evalutation: 10/24/18 11:22 Vitals reviewed. Nursing notes reviewed. Patient received Toradol prior to arrival but is still in significant pain. She will be given morphine for continued pain management. She has no patellar or knee dislocation. X-rays will be obtained to evaluate for underlying fracture. She has good peripheral perfusion and sensation. 10/24/18 13:03 Patient has a displaced patellar fracture on x-ray. She was placed in a knee immobilizer. She was told to follow-up with orthopedics tomorrow for reevaluation. She will be given a prescription for pain medication tonight. She was counseled on ice and elevation. She will be given crutches. Discharged in stable condition. Knee X-Ray 10/24/18 00:00 IMPRESSION: Fracture of the patella. - Vital Signs Vital signs: Temp Pulse Resp BP Pulse Ox 98.7 F 91 16 112/75 100 10/24/18 11:19 10/24/18 11:19 10/24/18 11:19 10/24/18 11:19 10/24/18 11:19 Discharge - Discharge Clinical Impression: Patellar fracture Qualifiers: Encounter type: initial encounter Fracture type: closed Fracture morphology: comminuted Fracture alignment: displaced Laterality: left Qualified Code(s): S82.042A - Displaced comminuted fracture of left patella, initial encounter for closed fracture Condition: Stable Disposition: HOME, SELF-CARE Instructions: Fractured Patella ([facility]), Knee Immobilizing Splint ([facility]) Additional Instructions: Please return to the emergency department if you have any worsening, or concern of your symptoms. Please return to the emergency department if you develop chest pain, difficulty breathing, severe abdominal pain, or ongoing vomiting. Please follow-up with your primary care physician in 2-3 days and any other recommended physicians. If prescribed, take all medications as directed. If you have any questions or concerns do not hesitate to return the emergency department for evaluation. Call Dr. Lopez, orthopedic surgery, tomorrow to arrange for close follow-up appointment. Do not put weight on your left leg until seen by orthopedic surgery. Prescriptions: Oxycodone HCl/Acetaminophen [Percocet 5-325 mg Tablet] 1 tab PO Q4H PRN #15 tablet PRN Reason: pain Referrals: JORDYN ROCA MD [Primary Care Provider] - Follow up as needed JESSICA LOPEZ MD [ACTIVE STAFF] - Follow up tomorrow
--- NOTE | 2018-10-24 12:18 | RADIOLOGY REPORT (SQ) ---
EXAM DESCRIPTION: KNEE LEFT 4 VIEW COMPLETED DATE/TIME: 10/24/2018 11:58 am REASON FOR STUDY: bed 17 s/p fall with deformity COMPARISON: None. NUMBER OF VIEWS: Four views. TECHNIQUE: AP, lateral, and both oblique radiographic images acquired of the left knee. LIMITATIONS: None. FINDINGS: MINERALIZATION: Normal. BONES: Transverse comminuted fracture of the patella 1/2 shaft width displacement. JOINT: Joint effusion. SOFT TISSUES: No foreign body. OTHER: No other significant finding. IMPRESSION: Fracture of the patella. TECHNICAL DOCUMENTATION: JOB ID: [id number] [employer]- All Rights Reserved Reading location - IP/workstation name: [email or web address]
== END 2018-10-24 13:23 | disposition home or self-care (01) ==
LOC: ER 11:14
DX: S82.042A Displaced comminuted fracture of left patella, initial encounter for closed fracture (principal); W01.0XXA Fall on same level from slipping, tripping and stumbling without subsequent striking against object, initial encounter; F17.200 Nicotine dependence, unspecified, uncomplicated; J45.909 Unspecified asthma, uncomplicated; Z88.0 Allergy status to penicillin; Z88.8 Allergy status to other drugs, medicaments and biological substances
CPT/HCPCS: 99284; 96372; 73564; L1830; J2270

== ENCOUNTER 2018-10-27 13:19 | Day surgery (SDC) | payer MEDICAID ==
[~2018-10-27 13:19] MED LIST changes: +CLINDAMYCIN 600 MG/D5W RTU 600 MG/50 ML RTUPB IV PRN; -LACTATED RINGERS 1000 ML IV PRN; -LIDOCAINE 0.5% INJ-PF (5 MG/ML) 50 ML SDV SUBCUT PRN; -RINGERS SOLUTION,LACTATED 2,000 ML IV PRN
[2018-10-27] MEDS ORDERED: ONDANSETRON HCL INJ/PF 4 MG/2 ML SDV ONE (13:45)
[2018-10-27] MEDS ORDERED: DEXAMETHASONE SOD PHOSPHATE INJ 4 MG/1 ML VIAL ONE (13:45)
[2018-10-27] MEDS ORDERED: KETOROLAC TROMETHAMINE 60 MG/2 ML SDV ONE (13:45)
[2018-10-27] MEDS ORDERED: SUCCINYLCHOLINE CHLORIDE INJ 200 MG/10 ML VIAL ONE (13:45)
[2018-10-27] MEDS ORDERED: METOCLOPRAMIDE HCL INJ/PF 10 MG/2 ML SDV ONE (13:45)
[2018-10-27] MEDS ORDERED: LIDOCAINE 2% INJ-PF (20 MG/ML) 2 ML AMPUL ONE (13:45)
[2018-10-27 14:17] LABS: AMORPHOUS SEDIMENT,URINE TRACE /HPF; APPEARANCE,URINE SLIGHTLY-CLOUDY; BILIRUBIN,URINE NEGATIVE (NEGATIVE); COLOR,URINE AMBER; GLUCOSE, URINE NEGATIVE (NEGATIVE); KETONES,URINE 20 mg/dL (NEGATIVE); LEUKOCYTE ESTERASE,URINE NEGATIVE (NEGATIVE); NITRITE,URINE NEGATIVE (NEGATIVE); PROTEIN,URINE 30 mg/dL (NEGATIVE); URINE SPECIFIC GRAVITY 1.031
[2018-10-27] MEDS ORDERED: CLINDAMYCIN 600 MG/D5W RTU 600 MG/50 ML RTUPB IV ONE (14:27)
[2018-10-27 14:36] LABS: HEMATOCRIT 36.6 % (36.0-47.0); HEMOGLOBIN 12.7 g/dL (12.0-15.5); MEAN CORPUSCULAR HGB CONC 34.7 g/dL (32.0-36.0); MEAN CORPUSCULAR VOLUME 92 fl (80-97); PLATELET COUNT 210 10^3/uL (150-450); RED BLOOD COUNT 3.97 10^6/uL (3.72-5.28); RED CELL DISTRIBUTION WIDTH 14.3 % (11.5-14.0); WHITE BLOOD COUNT 8.1 10^3/uL (4.0-10.5)
[2018-10-27 14:52] LABS: ANION GAP 9 (5-19); BLOOD UREA NITROGEN 12 mg/dL (7-20); CALCIUM 9.3 mg/dL (8.4-10.2); CARBON DIOXIDE 23 mmol/L (22-30); CHLORIDE 109 mmol/L (98-107); GLUCOSE 87 mg/dL (75-110); POTASSIUM 3.9 mmol/L (3.6-5.0); SODIUM 141.4 mmol/L (137-145)
[2018-10-27] MEDS ORDERED: KETAMINE HCL INJ 500 MG/10 ML VIAL ONE (15:40)
[2018-10-27] MEDS ORDERED: FENTANYL CITRATE INJ/PF 250 MCG/5 ML AMPULE ONE (15:40)
[2018-10-27] MEDS ORDERED: MIDAZOLAM 2 MG/2 ML INJ ONE (15:41)
[2018-10-27] MEDS ORDERED: DEXMEDETOMIDINE INJ 80 MCG/20 ML VIAL IV ONE (15:41)
[2018-10-27] MEDS ORDERED: PROPOFOL INJ 200 MG/20 ML VIAL IV ONE (15:42)
[2018-10-27] MEDS ORDERED: ACETAMINOPHEN 1,000 MG/100 ML RTUPB IV ONE (15:42)
[2018-10-27] MEDS ORDERED: ONDANSETRON HCL INJ/PF 4 MG/2 ML SDV IV PRN (15:58)
[2018-10-27] MEDS ORDERED: MORPHINE SULFATE 10 MG/ML INJ IV PRN (15:58)
[2018-10-27] MEDS ORDERED: PROMETHAZINE HCL INJ 25 MG/1 ML VIAL IV PRN ×2 (15:58)
[2018-10-27] MEDS ORDERED: MEPERIDINE HCL/PF INJ 25 MG/1 ML DISP.SYRIN IV PRN (15:58)
[2018-10-27] MEDS ORDERED: FENTANYL CITRATE INJ/PF 100 MCG/2 ML AMPUL IV PRN ×3 (15:58)
[2018-10-27] MEDS ORDERED: DIPHENHYDRAMINE HCL 50 MG/ML VIAL IV PRN (15:58)
--- NOTE | 2018-10-27 16:45 | Discharge Summary ---
Discharge Summary (SDC) - Discharge Final Diagnosis: Left patella fracture Date of Surgery: 10/27/18 Discharge Date: 10/27/18 Condition: Good Treatment or Instructions: Maintain knee immobilizer Prescriptions: Oxycodone HCl/Acetaminophen [Percocet 5-325 mg Tablet] 1 tab PO Q6H PRN #40 tablet PRN Reason: pain Referrals: JUSTO PIERRE MD [Primary Care Provider] - Discharge Diet: As Tolerated, Regular Discharge Activity: Balance Activity w/Rest, No tub bath Home Care Assistance: None Needed Adaptive Devices on Discharge: Axillary Crutches Report the Following to Your Physician Immediately: Shortness of Breath, Fever over 101 Degrees, Drainage-Foul Smelling
--- NOTE | 2018-10-27 16:47 | Operative Report ---
Operative Report DATE OF SURGERY: 10/27/18 PREOPERATIVE DIAGNOSIS: Left patella fracture OPERATION: Open reduction internal fixation left patella fracture SURGEON: JESSICA LOPEZ ANESTHESIA: GA ESTIMATED BLOOD LOSS: 100 PROCEDURE: With the patient supine on the operative table left lower extremities prepped and draped in sterile fashion. Longitudinal incision was made in the midline overlying the left patella. Sharp dissection was carried incision down to the fracture hematoma. The hematoma was evacuated. The fracture is irrigated with bulb lavage to bit better visualize it. Its reduced anatomically under direct visualization and held in place with a tenaculum. 2 x 2.0 mm pins were then placed from distal proximal parallel fashion across the fracture site. Fracture reduction and hardware placement checked using fluoroscopic fluoroscopy. Next a #5 FiberWire suture was used in a [id number] fashion around the pins. The proximal aspect and distal aspects of the pins are bent and buried in the patella. The medial and lateral retinacular tears were repaired using interrupted FiberWire. The tourniquet is deflated. Hemostasis obtained with electrocautery. The wound is irrigated with bulb lavage. Is closed using interrupted Vicryl followed by eren. A sterile compressive dressing and a knee immobilizer applied and the patient's return to PACU in satisfactory condition.
[2018-10-27] MEDS ORDERED: LORAZEPAM INJ 2 MG/1 ML VIAL ONE (17:06)
--- NOTE | 2018-10-27 17:12 | RADIOLOGY REPORT (SQ) ---
EXAM DESCRIPTION: NO CHG FLUORO; KNEE LEFT 2 VIEWS COMPLETED DATE/TIME: 10/27/2018 4:59 pm REASON FOR STUDY: ORIF LT PATELLA COMPARISON: None. FLUOROSCOPY TIME: 0.2 minutes 2 Images saved to PACS LIMITATIONS: None. PROCEDURE: Internal fixation of patellar fracture. FINDINGS: 2 images from fluoro shows a placement of wires in the patella. IMPRESSION: ORIF patellar fracture. Refer to operative note for further information. COMMENT: PQRS 6045F: Fluoroscopy time of the procedure is documented in the report. TECHNICAL DOCUMENTATION: JOB ID: [id number] [employer]- All Rights Reserved Reading location - IP/workstation name: [email or web address]
--- NOTE | 2018-10-27 17:12 | RADIOLOGY REPORT (SQ) ---
EXAM DESCRIPTION: NO CHG FLUORO; KNEE LEFT 2 VIEWS COMPLETED DATE/TIME: 10/27/2018 4:59 pm REASON FOR STUDY: ORIF LT PATELLA COMPARISON: None. FLUOROSCOPY TIME: 0.2 minutes 2 Images saved to PACS LIMITATIONS: None. PROCEDURE: Internal fixation of patellar fracture. FINDINGS: 2 images from fluoro shows a placement of wires in the patella. IMPRESSION: ORIF patellar fracture. Refer to operative note for further information. COMMENT: PQRS 6045F: Fluoroscopy time of the procedure is documented in the report. TECHNICAL DOCUMENTATION: JOB ID: [id number] [employer]- All Rights Reserved Reading location - IP/workstation name: [email or web address]
[2018-10-27] MEDS: FENTANYL CITRATE INJ/PF 100 MCG/2 ML AMPUL ONE ×2 (17:25→17:30)
[2018-10-27] MEDS ORDERED: KETOROLAC TROMETHAMINE INJ/PF 30 MG/1 ML SDV ONE (17:34)
[2018-10-27] MEDS: LORAZEPAM INJ 2 MG/1 ML VIAL ONE ×2 (17:36→17:41)
[2018-10-27] MEDS ORDERED: HYDROMORPHONE HCL INJ/PF 2 MG/ML AMPULE ONE (18:12)
[2018-10-27] MEDS ORDERED: HYDROMORPHONE HCL INJ/PF 2 MG/ML AMPULE INJ ONE (18:20)
[2018-10-27] MEDS ORDERED: OXYCODONE-ACETAMINOPHEN 5-325 MG TABLET PO PRN (19:00)
[2018-10-27 20:04] VITALS: BP 130/85
== END 2018-10-27 19:55 | disposition home or self-care (01) ==
LOC: OROUT 13:19
PROVIDERS: ATTEND Orthopaedic Surgery
DX: S82.032A Displaced transverse fracture of left patella, initial encounter for closed fracture (principal); W01.0XXA Fall on same level from slipping, tripping and stumbling without subsequent striking against object, initial encounter; F17.210 Nicotine dependence, cigarettes, uncomplicated; F90.9 Attention-deficit hyperactivity disorder, unspecified type; F32.9 Major depressive disorder, single episode, unspecified; Z79.899 Other long term (current) drug therapy; Z88.0 Allergy status to penicillin
CPT/HCPCS: 36415; 85027; 81025; 80048; 81001; 73560; 27524; C1713; J2250; S0077; J1100; J1885 ×2; J3010 ×2; J3490 ×3; J2765; J1170; J2060; J0330; J2405; J2704; J0131; 01392

== ENCOUNTER 2019-04-29 15:47 | Emergency (ER) | payer MEDICAID, OTHER ==
[2019-04-29] MEDS ORDERED: IBUPROFEN 800 MG TABLET PO ONE (16:12)
--- NOTE | 2019-04-29 16:16 | ER Document Report ---
HPI - HPI Time Seen by Provider: 04/29/19 16:11 Pain Level: 4 Notes: Patient is a 29-year-old female with a history of patellar fracture of the left knee in October 2018 who presents complaining of acute left knee pain status post injury prior to arrival when she was at work. Patient states that she was going to catch some that was falling over and she bent her knee further than it has been able to in a long time causing lateral knee pain. Patient states that she placed her knee immobilizer back on her leg to help her ambulate. Patient states that flexion makes her pain worse as well as ambulate him. She has noticed some swelling as well. Denies any headache, fever, head injury, neck pain, URI, sore throat, chest pain, palpitations, syncope, cough, shortness of breath, wheeze, dyspnea, abdominal pain, nausea/vomiting/diarrhea, urinary retention, dysuria, hematuria, loss of control of bowel or bladder, numbness/tingling, saddle anesthesia, muscle paralysis/weakness, or rash. - ROS Systems Reviewed and Negative: Yes All other systems reviewed and negative - REPRODUCTIVE Reproductive: DENIES: : Past Medical History - Social History Smoking Status: Unknown if Ever Smoked Family History: Reviewed & Not Pertinent - Past Medical History Cardiac Medical History: Denies: Hx Coronary Artery Disease, Hx Heart Attack, Hx Hypertension Pulmonary Medical History: Reports: Hx Asthma - ALBUTEROL, Hx Pneumonia Denies: Hx Bronchitis, Hx COPD Neurological Medical History: Denies: Hx Cerebrovascular Accident, Hx Seizures Renal/ Medical History: Denies: Hx Peritoneal Dialysis GI Medical History: Reports: Hx Gastroesophageal Reflux Disease - during Musculoskeletal Medical History: Denies Hx Arthritis Psychiatric Medical History: Reports: Hx Anxiety, Hx Depression Past Surgical History: Reports: Hx Section - March 2009 emergency - Immunizations Hx Diphtheria, Pertussis, Tetanus Vaccination: Yes Hx Pneumococcal Vaccination: 03/09/13 Vertical Provider Document - CONSTITUTIONAL Agree With Documented VS: Yes Notes: PHYSICAL EXAMINATION: GENERAL: Well-appearing, well-nourished and in no acute distress. LUNGS: Breath sounds clear to auscultation bilaterally and equal. No wheezes rales or rhonchi. HEART: Regular rate and rhythm without murmurs, rubs, gallops. Musculoskeletal: Lt knee: + mild swelling noted. No ecchymosis or deformity. LROM to passive/active and flexion. + tenderness lateral knee. Strength 5+/5. N/V intact distal. Unable to adequately assess ligaments/cartilage with pt resistance and LROM. No calf tenderness. Extremities: No cyanosis, clubbing, or edema b/l. Peripheral pulses 2+. Capillary refill less than 3 seconds. Victorina neg b/l. NEUROLOGICAL: Normal speech, limping gait. Normal sensory, motor exams PSYCH: Normal mood, normal affect. SKIN: Warm, Dry, normal turgor, no rashes or lesions noted. - INFECTION CONTROL TRAVEL OUTSIDE OF THE [place] IN LAST 30 DAYS: No Course - Re-evaluation Re-evalutation: 04/29/19 17:28 Patient is an afebrile, well-hydrated, 29-year-old female who presents to the ED with left knee pain acute on chronic. Vitals are acceptable without any significant tachycardia, tachypnea, or hypoxia. PE is otherwise unremarkable for any neurovascular compromise, obvious tendon/ligament rupture, obvious fracture/dislocation, septic joint. X-ray was unremarkable for any acute pathology aside from effusion. Crutches were provided today and pt already in knee immobilizer. Motrin given PO. Patient is nontoxic-appearing. Patient is able to ambulate and weight-bear although she is limping. No other labs or imaging warranted at this time based on H&P. Conservative measures otherwise for symptoms. Recheck with your PCM in 3-5 days. Schedule consult with orthopedics. Return to the ED with any worsening/concerning symptoms otherwise as reviewed in discharge. Patient is in agreement. - Vital Signs Vital signs: Temp Pulse Resp BP Pulse Ox 98.4 F 102 H 18 149/82 H 99 04/29/19 15:58 04/29/19 15:58 04/29/19 15:58 04/29/19 15:58 04/29/19 15:58 Discharge - Discharge Clinical Impression: Left knee pain Qualifiers: Chronicity: acute Qualified Code(s): M25.562 - Pain in left knee Condition: Stable Disposition: HOME, SELF-CARE Additional Instructions: Rest, Ice, Compression, Elevation Tylenol/ibuprofen as needed Light stretches daily Strength exercises as able Moist heat and massage may help F/u with your PCP in 3-5 days for a recheck Schedule an appointment with orthopedics for further evaluation and management Return to the ED with any worsening symptoms and/or development of fever, headache, chest pain, palpitations, syncope, shortness of breath, trouble breathing, abdominal pain, n/v/d, muscle weakness/paralysis, numbness/tingling, swelling, redness, or other worsening symptoms that are concerning to you. Prescriptions: Meloxicam [Mobic 7.5 Mg Tablet] 7.5 mg PO BID PRN #14 tablet PRN Reason: Forms: Elevated Blood Pressure, Return to Work Referrals: JESSICA LOPEZ MD [ACTIVE STAFF] - Follow up in 3-5 days
--- NOTE | 2019-04-29 17:26 | RADIOLOGY REPORT (SQ) ---
EXAM DESCRIPTION: KNEE LEFT 4 VIEW COMPLETED DATE/TIME: 04/29/2019 5:17 pm REASON FOR STUDY: left knee pain s/p injury COMPARISON: 10/27/2018 NUMBER OF VIEWS: Four views. TECHNIQUE: AP, lateral, and both oblique radiographic images acquired of the left knee. LIMITATIONS: None. FINDINGS: MINERALIZATION: Normal. BONES: No acute fracture. Hardware from the previous patellar fracture appears intact. There is par tial nonunion across the patellar fracture. JOINT: Small joint effusion. SOFT TISSUES: No soft tissue swelling. No radio-opaque foreign body. OTHER: No other significant finding. IMPRESSION: No acute fracture. Hardware femoral prior patellar fracture where there is partial nonu nion. Joint effusion. TECHNICAL DOCUMENTATION: JOB ID: [id number] [employer]- All Rights Reserved Reading location - IP/workstation name: [email or web address]
[2019-04-29 17:43] VITALS: BP 121/57
== END 2019-04-29 18:30 | disposition home or self-care (01) ==
LOC: ER 15:47
DX: M25.562 Pain in left knee (principal); M25.462 Effusion, left knee; X50.0XXA Overexertion from strenuous movement or load, initial encounter; Y93.89 Activity, other specified; Y99.0 Civilian activity done for income or pay; G89.29 Other chronic pain
CPT/HCPCS: 99283

== ENCOUNTER → 2020-02-07 | Outpatient (CLI) | payer MEDICAID ==
--- NOTE | 2020-02-07 15:18 | RADIOLOGY REPORT (SQ) ---
EXAM DESCRIPTION: U/S OB 14+ TRNABD 1GES W/O DOP IMAGES COMPLETED DATE/TIME: 02/07/2020 3:06 pm REASON FOR STUDY: Z34.82 ENCOUNTER FOR SUPRVSN OF NORMAL , SECOND TRIMESTER Z34.82 ENCOUNT ER FOR SUPRVSN OF NORMAL , SECOND TRI COMPARISON: None. TECHNIQUE: Static and Dynamic grayscale imaging performed of gravid uterus using transabdominal appr oach. Additional selected color Doppler and spectral images recorded. All stored on PACS. LIMITATIONS: None. FINDINGS: FETUSES SEEN:1 EGA: 29 weeks 1 day. Calculated using BPD,FL,HC,AC documented on images. No discrepancy with clinica l dates. ATTILA: 04/23/2020 EFW: 1,317 grams PERCENTILE: 57 MARIMAR: 10 cm. PLACENTA: Posterior in location. Grade 1. PRESENTATION: Cephalic. ANATOMY: HEART RATE: 130 beats per minute. FOUR CHAMBER HEART: Visualized. THREE VESSEL CORD: Yes. CORD INSERTION: Not visualized. KIDNEYS AND BLADDER: Visualized. Appear normal. STOMACH: Visualized. Appears normal. SPINE: Normal as visualized. BRAIN AND LATERAL VENTRICLES: Visualized. Appear normal. OTHER: No other significant finding. MATERNAL ADNEXA: Maternal ovaries not visualized. CERVICAL LENGTH: 3.9 cm. Closed. OTHER: No other significant finding. IMPRESSION: LIVING INTRAUTERINE . ESTIMATED GESTATIONAL AGE 29 WEEKS 1 DAY. NO VISUALIZED ANOMALIES. Trimester of : Third trimester - 28 weeks to delivery. TECHNICAL DOCUMENTATION: JOB ID: [id number] [employer]- All Rights Reserved Reading location - IP/workstation name: [email or web address]
== END ==
LOC: RAD 13:43
PROVIDERS: ATTEND Nurse Practitioner Family
DX: Z34.82 Encounter for supervision of other normal pregnancy, second trimester (principal)
CPT/HCPCS: 76805

== ENCOUNTER 2020-02-19 14:28 | Outpatient (CLI) | payer MEDICAID ==
[2020-02-19 15:16] LABS: APPEARANCE,URINE CLOUDY; BILIRUBIN,URINE NEGATIVE (NEGATIVE); COLOR,URINE AMBER; GLUCOSE, URINE NEGATIVE (NEGATIVE); KETONES,URINE NEGATIVE (NEGATIVE); LEUKOCYTE ESTERASE,URINE NEGATIVE (NEGATIVE); NITRITE,URINE NEGATIVE (NEGATIVE); PROTEIN,URINE 30 mg/dL (NEGATIVE); URINE SPECIFIC GRAVITY 1.023
[2020-02-19 15:17] LABS: BACTERIA (WET MOUNT) 4+ BACTERIA SEEN; EPITHELIALS (WET MOUNT) 4+ EPITHELIALS SEEN; RBCS (WET MOUNT) NO RBCS SEEN; T.VAGINALIS (WET MOUNT) NO TRICHOMONAS SEEN; WBCS (WET MOUNT) FEW WBCS SEEN; YEAST (WET MOUNT) NO YEAST SEEN
[2020-02-19] MEDS ORDERED: RINGERS SOLUTION,LACTATED 2,000 ML IV PRN (15:28)
[2020-02-19] MEDS ORDERED: ONDANSETRON HCL INJ/PF 4 MG/2 ML SDV IV ONE (15:28)
[2020-02-19 15:35] LABS: URINE AMPHETAMINES SCREEN NEGATIVE; URINE BARBITURATES SCREEN NEGATIVE; URINE BENZODIAZEPINES SCREEN NEGATIVE; URINE COCAINE SCREEN NEGATIVE; URINE METHADONE SCREEN NEGATIVE; URINE PHENCYCLIDINE SCREEN NEGATIVE
[2020-02-19] MEDS ORDERED: ONDANSETRON HCL INJ/PF 4 MG/2 ML SDV ONE (15:41)
[2020-02-19 15:42] LABS: URINE MARIJUANA (THC) SCREEN UNCONFIRMED POSITIVE
[2020-02-19 16:47] LABS: CHLAM PCR NOT DETECTED (NOT DETECT)
== END 2020-02-19 18:17 | disposition home or self-care (01) ==
LOC: LC 14:28
PROVIDERS: ATTEND Obstetrics & Gynecology
DX: O99.283 Endocrine, nutritional and metabolic diseases complicating pregnancy, third trimester (principal); E86.0 Dehydration; O21.2 Late vomiting of pregnancy; O99.333 Smoking (tobacco) complicating pregnancy, third trimester; F17.210 Nicotine dependence, cigarettes, uncomplicated; O99.323 Drug use complicating pregnancy, third trimester; F12.90 Cannabis use, unspecified, uncomplicated; Z3A.30 30 weeks gestation of pregnancy
CPT/HCPCS: 59899; 87210; 81001; 80307; 87491; 87591; 80361; 84112; G0480 ×2; J2405; 80349

== ENCOUNTER 2020-04-16 07:45 | Inpatient (IN) | payer MEDICAID ==
[2020-04-09 11:41] LABS: APPEARANCE,URINE SLIGHTLY-CLOUDY; BILIRUBIN,URINE NEGATIVE (NEGATIVE); COLOR,URINE YELLOW; GLUCOSE, URINE NEGATIVE (NEGATIVE); KETONES,URINE NEGATIVE (NEGATIVE); LEUKOCYTE ESTERASE,URINE NEGATIVE (NEGATIVE); NITRITE,URINE NEGATIVE (NEGATIVE); PROTEIN,URINE 30 mg/dL (NEGATIVE); URINE SPECIFIC GRAVITY 1.019
[2020-04-09 11:58] LABS: URINE AMPHETAMINES SCREEN NEGATIVE; URINE BARBITURATES SCREEN NEGATIVE; URINE BENZODIAZEPINES SCREEN NEGATIVE; URINE COCAINE SCREEN NEGATIVE; URINE METHADONE SCREEN NEGATIVE; URINE PHENCYCLIDINE SCREEN NEGATIVE
[2020-04-09 13:54] LABS: URINE MARIJUANA (THC) SCREEN UNCONFIRMED POSITIVE
[2020-04-16 15:20] LABS: ABSOLUTE LYMPHOCYTES (AUTO) 1.5 10^3/uL (0.5-4.7); ABSOLUTE MONOCYTES (AUTO) 0.5 10^3/uL (0.1-1.4); ABSOLUTE NEUT (AUTO) 7.8 10^3/uL (1.7-8.2); BASOPHILS % (AUTO) 0.4 % (0-2); EOSINOPHILS % (AUTO) 0.5 % (0-6); HEMATOCRIT 37.8 % (36.0-47.0); MEAN CORPUSCULAR HEMOGLOBIN 31.5 pg (27.0-33.4); MEAN CORPUSCULAR HGB CONC 34.5 g/dL (32.0-36.0); MEAN CORPUSCULAR VOLUME 92 fl (80-97); MONOCYTES % (AUTO) 5.3 % (3-13); RED BLOOD COUNT 4.13 10^6/uL (3.72-5.28); RED CELL DISTRIBUTION WIDTH 13.3 % (11.5-14.0); SEGMENTED NEUTROPHILS % (AUTO) 78.8 % (42-78); TOTAL CELLS COUNTED % (AUTO) 100 %; WHITE BLOOD COUNT 9.9 10^3/uL (4.0-10.5)
[2020-04-16 16:03] LABS: PLATELET COUNT 145 10^3/uL (150-450)
[2020-04-17] MEDS ORDERED: LIDOCAINE 0.5% INJ-PF (5 MG/ML) 50 ML SDV SUBCUT PRN (05:00)
[2020-04-17] MEDS ORDERED: LACTATED RINGERS 1000 ML IV PRN (05:00)
[2020-04-17] MEDS ORDERED: CLINDAMYCIN 900 MG/D5W RTU 900 MG/50 ML RTUPB IV PRN (05:44)
[2020-04-17 06:10] LABS: APPEARANCE,URINE CLOUDY; BILIRUBIN,URINE NEGATIVE (NEGATIVE); COLOR,URINE AMBER; GLUCOSE, URINE NEGATIVE (NEGATIVE); KETONES,URINE NEGATIVE (NEGATIVE); LEUKOCYTE ESTERASE,URINE TRACE (NEGATIVE); NITRITE,URINE NEGATIVE (NEGATIVE); PROTEIN,URINE 30 mg/dL (NEGATIVE); URINE SPECIFIC GRAVITY 1.021; UROBILINOGEN,URINE NEGATIVE mg/dL (<2.0)
[2020-04-17] MEDS: RINGERS SOLUTION,LACTATED 1,000 ML IV SCH (06:22)
[2020-04-17 06:24] LABS: URINE AMPHETAMINES SCREEN NEGATIVE; URINE BARBITURATES SCREEN NEGATIVE; URINE BENZODIAZEPINES SCREEN NEGATIVE; URINE COCAINE SCREEN NEGATIVE; URINE METHADONE SCREEN NEGATIVE; URINE PHENCYCLIDINE SCREEN NEGATIVE
[2020-04-17 06:47] LABS: URINE MARIJUANA (THC) SCREEN UNCONFIRMED POSITIVE
[2020-04-17] MEDS ORDERED: RINGERS SOLUTION,LACTATED 2,000 ML IV PRN (08:32)
[2020-04-17] MEDS ORDERED: CITRIC ACID/SODIUM CITRATE ORAL SOLN 15 ML UDCUP ONE (09:17)
[2020-04-17] MEDS ORDERED: OXYTOCIN 10 UNIT/ML VIAL ONE (09:17)
[2020-04-17] MEDS ORDERED: PROPOFOL INJ 200 MG/20 ML VIAL IV ONE (09:17)
[2020-04-17] MEDS ORDERED: MIDAZOLAM 2 MG/2 ML INJ ONE (09:18)
[2020-04-17] MEDS ORDERED: FENTANYL CITRATE INJ/PF 100 MCG/2 ML AMPUL ONE (09:18)
[2020-04-17] MEDS ORDERED: PHENYLEPHRINE HCL INJ/PF 10 MG/1 ML SDV ONE (09:18)
[2020-04-17] MEDS ORDERED: ONDANSETRON HCL INJ/PF 4 MG/2 ML SDV ONE (09:18)
[2020-04-17] MEDS ORDERED: MEPERIDINE HCL/PF INJ 25 MG/1 ML DISP.SYRIN IV PRN (10:21)
[2020-04-17] MEDS ORDERED: PROMETHAZINE HCL INJ 25 MG/1 ML VIAL IV PRN ×2 (10:21→14:43)
[2020-04-17] MEDS ORDERED: DIPHENHYDRAMINE HCL 50 MG/ML VIAL IV PRN (10:21)
[2020-04-17] MEDS ORDERED: MORPHINE SULFATE 10 MG/ML INJ IV PRN (10:21)
[2020-04-17] MEDS ORDERED: FENTANYL CITRATE INJ/PF 100 MCG/2 ML AMPUL IV PRN ×3 (10:21)
[2020-04-17] MEDS ORDERED: BUPIVACAINE HCL 0.25 % INJ/PF (2.5 MG/1 ML) 30 ML VIAL ONE (10:46)
[2020-04-17] MEDS ORDERED: ACETAMINOPHEN 1,000 MG/100 ML RTUPB IV ONE (11:18)
[2020-04-17] MEDS ORDERED: KETOROLAC TROMETHAMINE INJ/PF 30 MG/1 ML SDV ONE (11:18)
[2020-04-17] MEDS ORDERED: ATROPINE SULFATE INJ 1 MG/10 ML DISP.SYRIN IV ONE (11:29)
[2020-04-17] MEDS ORDERED: OXYTOCIN/0.9 % SODIUM CHLORIDE 30 UNIT/500 ML RTUINJ ONE (12:14)
[2020-04-17] MEDS ORDERED: MISOPROSTOL 0.2 MG TABLET ONE (12:14)
[2020-04-17] MEDS ORDERED: OXYTOCIN/0.9 % SODIUM CHLORIDE 30 UNIT/500 ML RTUINJ IV PRN ×2 (12:15→14:43)
[2020-04-17] MEDS ORDERED: MISOPROSTOL 0.2 MG TABLET PR ONE (12:15)
[2020-04-17 13:46] LABS: HEMATOCRIT 38.2 % (36.0-47.0); HEMOGLOBIN 12.8 g/dL (12.0-15.5); MEAN CORPUSCULAR HEMOGLOBIN 30.9 pg (27.0-33.4); MEAN CORPUSCULAR HGB CONC 33.6 g/dL (32.0-36.0); MEAN CORPUSCULAR VOLUME 92 fl (80-97); PLATELET COUNT 131 10^3/uL (150-450); RED BLOOD COUNT 4.15 10^6/uL (3.72-5.28); RED CELL DISTRIBUTION WIDTH 13.4 % (11.5-14.0); WHITE BLOOD COUNT 14.4 10^3/uL (4.0-10.5)
[2020-04-17] MEDS ORDERED: ACETAMINOPHEN 1,000 MG/100 ML RTUPB IV PRN (14:43)
[2020-04-17] MEDS ORDERED: DIPH/PERTUSS(ACELL)/TETANUS VAC/PF 0.5 ML SYR (>=10YO) IM PRN (14:43)
[2020-04-17] MEDS ORDERED: MEASLES,MUMPS&RUBELLA VACC/PF 0.5 ML VIAL SUBCUT PRN (14:43)
[2020-04-17] MEDS ORDERED: RINGERS SOLUTION,LACTATED 1,000 ML IV PRN (14:43)
[2020-04-17] MEDS ORDERED: SIMETHICONE 80 MG TAB.CHEW PO PRN (14:43)
[2020-04-17] MEDS ORDERED: OXYCODONE-ACETAMINOPHEN 5-325 MG TABLET PO PRN (14:43)
[2020-04-17] MEDS ORDERED: ACETAMINOPHEN 325 MG TABLET PO PRN (14:43)
--- NOTE | 2020-04-17 14:51 | Operative Report ---
Operative Report DATE OF SURGERY: 04/17/20 PREOPERATIVE DIAGNOSIS: Previous and desires tubal ligation POSTOPERATIVE DIAGNOSIS: Same OPERATION: Repeat via low transverse uterine incision tube ligation with Filshie clips SURGEON: DES MOORE ANESTHESIA: Spinal COMPLICATIONS: None ESTIMATED BLOOD LOSS: 250 cc INTRAOPERATIVE FINDINGS: Viable crying at delivery. Fibroid uterus noted normal tubes and ovaries. PROCEDURE: Patient was taken to the OR and placed in supine position after her spinal anesthesia. She is prepared and draped in sterile fashion. Driver was placed for drainage of the bladder. Low transverse incision was made and carried down the level of the fascia. The fascial incision was made with knife and extended bilaterally with curved Malloy scissors. The fascia was off the rectus muscles using sharp and blunt dissection. The rectus muscles are in the midline. The peritoneum was entered without incident. Bladder blade was placed in uterine segment was identified. A low transverse incision was made creating a bladder flap. Bladder blade was placed low transverse uterine incision was made with the knife and extended with fingertips. The baby was delivered with some fundal pressure. Mouth and nose were suctioned free. The cord is doubly clamped and cut. Baby is passed off to the crystal cutter in attendance. The placenta was manually extracted with trailing membranes. The uterus was externalized wrapped in a moist lap sponge. Uterine contents wiped free. Uterus was closed with a running locking layer of 0 chromic suture using the second layer to imbricate the first completing a double layer closure of the uterus. The serosa was closed with a running 2-0 chromic stitch. The fallopian tubes were identified bilaterally by the fimbria and a Filshie clip was placed across each mid isthmic portion. The pelvis was irrigated and suctioned free of fluid the uterus was replaced in the abdomen. The abdominal wall peritoneum was closed with running 2-0 chromic stitch. Fascia was closed with a running 0 Vicryl in 2 segments. Kenna's layer was brought together with 0 plain gut stitch and the skin was closed with running subcuticular 4-0 undyed Vicryl stitch. The wound was dressed mother and baby did well.
[2020-04-17] MEDS ORDERED: OXYCODONE-ACETAMINOPHEN 5-325 MG TABLET ONE (15:16)
[2020-04-17] MEDS: HYDROMORPHONE HCL INJ/PF 2 MG/ML AMPULE IV PRN ×2 (16:36→23:26)
[2020-04-17] MEDS: IBUPROFEN 800 MG TABLET PO SCH (17:46)
[2020-04-17] MEDS: DOCUSATE SODIUM 100 MG CAPSULE PO SCH (17:47)
[2020-04-17] MEDS: KETOROLAC TROMETHAMINE INJ/PF 30 MG/1 ML SDV IV SCH (21:59)
[2020-04-17] MEDS: OXYCODONE-ACETAMINOPHEN 5-325 MG TABLET PO PRN (22:04)
[2020-04-18] MEDS: IBUPROFEN 800 MG TABLET PO SCH ×4 (01:17→17:21)
[2020-04-18] MEDS: OXYCODONE-ACETAMINOPHEN 5-325 MG TABLET PO PRN ×5 (03:33→21:48)
[2020-04-18] MEDS: KETOROLAC TROMETHAMINE INJ/PF 30 MG/1 ML SDV IV SCH ×2 (05:08→17:01)
[2020-04-18 06:50] LABS: HEMATOCRIT 33.8 % (36.0-47.0); HEMOGLOBIN 11.4 g/dL (12.0-15.5); MEAN CORPUSCULAR HGB CONC 33.6 g/dL (32.0-36.0); MEAN CORPUSCULAR VOLUME 92 fl (80-97); PLATELET COUNT 118 10^3/uL (150-450); RED BLOOD COUNT 3.67 10^6/uL (3.72-5.28); RED CELL DISTRIBUTION WIDTH 13.3 % (11.5-14.0); WHITE BLOOD COUNT 10.7 10^3/uL (4.0-10.5)
[2020-04-18] MEDS: DOCUSATE SODIUM 100 MG CAPSULE PO SCH ×2 (09:48→17:20)
[2020-04-18] MEDS: PRENATAL VITAMIN W DHA CAPSULE PO SCH (09:48)
[2020-04-18] MEDS: RINGERS SOLUTION,LACTATED 1,000 ML IV SCH (11:11)
--- NOTE | 2020-04-18 11:34 | PDOC PROGRESS REPORT ---
Subjective-OB Progress Note for:: 04/18/20 Subjective: 30yo s/p repeat with BTL ppd 1. Pt ambulating and voiding without difficulty denies any concerns, reports pain well controlled with medication. Physical Exam (OB) Vital Signs: Temp Pulse Resp BP Pulse Ox 97.3 F 61 16 113/72 100 04/18/20 07:47 04/18/20 07:47 04/18/20 07:47 04/18/20 07:47 04/18/20 07:47 Intake & Output 04/17/20 04/18/20 04/19/20 06:59 06:59 06:59 Intake Total 2500 600 Output Total 1850 Balance 650 600 Weight 198 kg - General General Appearance: Appears well In distress: None - PIH/Pre-Eclampsia DTR's: 1 + Clonus: Negative Headache: Absent Epigastric Pain: No Visual Changes: No - Dressing Removed: No - opsite, scant drain Incision: Dressing, Draining Closure Type: opsite - Lochia Lochia Amount: Small 10-25 ml Lochia Color: Rubra/Red - Abdomen Description: Soft, Round Hernia Present: No Fundal Description: Firm, Midline Fundal Height: u/u - u/2 - Respiratory Respiratory Status: No respiratory distress - Extremities Upper extremity: Normal inspection Lower extremities: Normal inspection - Neurological Cognition: Normal Orientation: AAOx4 - Psychological Associated symptoms: Normal affect, Normal mood Objective-Diagnostic Laboratory: 04/18/20 06:23 04/17/20 04/18/20 13:20 06:23 WBC 14.4 H 10.7 H RBC 4.15 3.67 L Hgb 12.8 11.4 L Hct 38.2 33.8 L MCV 92 92 MCH 30.9 31.0 MCHC 33.6 33.6 RDW 13.4 13.3 Plt Count 131 L 118 L Assessment and Plan(PN) - Assessment and Plan (1) Status post repeat low transverse section Is this a current diagnosis for this admission?: Yes Plan: routine pp care (2) Encounter for tubal ligation Is this a current diagnosis for this admission?: Yes Plan: routine pp care (3) Delivery by section using transverse incision of lower segment of uterus Is this a current diagnosis for this admission?: Yes Plan: routine pp care (4) History of delivery Is this a current diagnosis for this admission?: Yes Plan: delivered (5) Uterine scar from previous delivery Is this a current diagnosis for this admission?: Yes Plan: delivered - Time Spent with Patient Time with patient: Less than 15 minutes Medications reviewed and adjusted accordingly: Yes - Disposition Anticipated Discharge: Home Within: within 24 hours
[2020-04-19] MEDS: OXYCODONE-ACETAMINOPHEN 5-325 MG TABLET PO PRN ×5 (01:53→22:50)
[2020-04-19] MEDS: IBUPROFEN 800 MG TABLET PO SCH ×4 (01:53→17:24)
[2020-04-19 08:10] LABS: HEMATOCRIT 32.4 % (36.0-47.0); HEMOGLOBIN 10.9 g/dL (12.0-15.5); MEAN CORPUSCULAR HGB CONC 33.5 g/dL (32.0-36.0); MEAN CORPUSCULAR VOLUME 93 fl (80-97); PLATELET COUNT 118 10^3/uL (150-450); RED CELL DISTRIBUTION WIDTH 13.3 % (11.5-14.0)
[2020-04-19] MEDS: DOCUSATE SODIUM 100 MG CAPSULE PO SCH ×2 (10:44→17:24)
[2020-04-19] MEDS: PRENATAL VITAMIN W DHA CAPSULE PO SCH (10:44)
--- NOTE | 2020-04-19 14:18 | PDOC PROGRESS REPORT ---
Subjective-OB Progress Note for:: 04/19/20 - POD #2, doing well, UOB, ambulating and voiding , O+. s/p Rpt w/ BTL Physical Exam (OB) Vital Signs: Temp Pulse Resp BP Pulse Ox 97.9 F 57 L 16 117/67 100 04/19/20 07:48 04/19/20 07:48 04/19/20 07:48 04/19/20 07:48 04/19/20 07:48 Intake & Output 04/18/20 04/19/20 04/20/20 06:59 06:59 06:59 Intake Total 2500 3480 600 Output Total 1850 Balance 650 3480 600 - General General Appearance: Appears well, Alert - PIH/Pre-Eclampsia DTR's: 1 + Clonus: Negative Headache: Absent Epigastric Pain: No Visual Changes: No - Dressing Removed: Yes - opsite with scant old shadow drainage Incision: Dressing Closure Type: opsite - Lochia Lochia Amount: Small 10-25 ml Lochia Color: Rubra/Red - Abdomen Description: Soft, Round Hernia Present: No Fundal Description: Firm, Midline Fundal Height: u/u - u/2 - Respiratory Respiratory Status: No respiratory distress Breath sounds: Clear - Cardiovascular Rhythm: Regular Heart Sounds: Normal auscultation - Abdominal Distension: No distension Tenderness: Nontender Abdominal Notes: +BS present - Genitourinary Genitourinary Note: voiding - Extremities Upper extremity: Normal inspection Lower extremities: Normal inspection - Neurological Cognition: Normal Orientation: AAOx4 - Psychological Associated symptoms: Normal affect, Normal mood - Skin Skin Temperature: Warm Skin Moisture: Dry Objective-Diagnostic Laboratory: 04/19/20 07:39 04/19/20 07:39 WBC 7.0 RBC 3.50 L Hgb 10.9 L Hct 32.4 L MCV 93 MCH 31.0 MCHC 33.5 RDW 13.3 Plt Count 118 L Assessment and Plan(PN) - Assessment and Plan (1) Encounter for tubal ligation Is this a current diagnosis for this admission?: Yes (2) Status post repeat low transverse section Is this a current diagnosis for this admission?: Yes (3) Acute blood loss anemia Is this a current diagnosis for this admission?: Yes (4) Delivery by section using transverse incision of lower segment of uterus Is this a current diagnosis for this admission?: Yes (5) History of delivery Is this a current diagnosis for this admission?: Yes (6) Uterine scar from previous delivery Is this a current diagnosis for this admission?: Yes Plan:: routine Post Op and PP orders, ambulation encouraged - Time Spent with Patient Time with patient: Less than 15 minutes Medications reviewed and adjusted accordingly: Yes - Disposition Anticipated Discharge: Home Within: within 24 hours
[2020-04-20] MEDS: IBUPROFEN 800 MG TABLET PO SCH ×3 (00:38→11:59)
[2020-04-20] MEDS: OXYCODONE-ACETAMINOPHEN 5-325 MG TABLET PO PRN ×3 (03:22→13:02)
[2020-04-20] MEDS: PRENATAL VITAMIN W DHA CAPSULE PO SCH (09:39)
[2020-04-20] MEDS: DOCUSATE SODIUM 100 MG CAPSULE PO SCH (09:39)
--- NOTE | 2020-04-20 10:06 | PDOC PROGRESS REPORT ---
Subjective-OB Progress Note for:: 04/20/20 Subjective: Sitting up in bed with baby, no c/o, voiding, passing gas, pain under control, ready to go home Physical Exam (OB) Vital Signs: Temp Pulse Resp BP Pulse Ox 97.6 F 60 16 115/74 99 04/20/20 08:39 04/20/20 08:39 04/20/20 08:39 04/20/20 08:39 04/20/20 08:39 Intake & Output 04/19/20 04/20/20 04/21/20 06:59 06:59 06:59 Intake Total 3480 1550 Balance 3480 1550 - PIH/Pre-Eclampsia DTR's: 1 + Clonus: Negative Headache: Absent Epigastric Pain: No Visual Changes: No - Dressing Removed: Yes - opsite with scant old shadow drainage Incision: Open Closure Type: opsite - Bilateral Tubal Ligation Site: Open - Lochia Lochia Amount: Scant < 10 ml Lochia Color: Rubra/Red - Abdomen Description: Soft, Flat Hernia Present: No Fundal Description: Firm, Midline Fundal Height: u/u - u/2 Objective-Diagnostic Laboratory: 04/19/20 07:39 Assessment and Plan(PN) - Assessment and Plan (1) Encounter for tubal ligation Is this a current diagnosis for this admission?: Yes (2) Status post repeat low transverse section Is this a current diagnosis for this admission?: Yes (3) Acute blood loss anemia Is this a current diagnosis for this admission?: Yes - Time Spent with Patient Time with patient: Less than 15 minutes Medications reviewed and adjusted accordingly: Yes - Disposition Anticipated Discharge: Home Within: within 24 hours
--- NOTE | 2020-04-20 10:21 | PDOC DISCHARGE SUMMARY ---
Impression - Admit/DC Date/PCP Admission Date/Primary Care Provider: 04/17/20 05:09 JULISSA ALVARADO MD Discharge Date: 04/20/20 - Discharge Diagnosis (1) Encounter for tubal ligation Is this a current diagnosis for this admission?: Yes (2) Status post repeat low transverse section Is this a current diagnosis for this admission?: Yes (3) Acute blood loss anemia Is this a current diagnosis for this admission?: Yes - Additional Information Resuscitation Status: Full Code Discharge Diet: As Tolerated, Regular Discharge Activity: Activity As Tolerated, Balance Activity w/Rest, No Lifting Over 10 Pounds, No Lifting/Push/Pulling, Pelvic Rest, No tub bath Referrals: JULISSA ALVARADO MD [Primary Care Provider] - (Follow up in 1 week for incision check. Call the office and make an appointment. ) Prescriptions: Oxycodone HCl/Acetaminophen [Percocet 5-325 mg Tablet] 1 tab PO Q4HP PRN #20 tablet PRN Reason: Ibuprofen [Motrin 800 mg Tablet] 800 mg PO Q6 #30 tablet Home Medications: Vit,Calc76/Iron/Folic [Prenatabs Rx Tablet] 1 each PO DAILY 02/19/20 Ibuprofen [Motrin 800 mg Tablet] 800 mg PO Q6 #30 tablet 04/20/20 Oxycodone HCl/Acetaminophen [Percocet 5-325 mg Tablet] 1 tab PO Q4HP PRN #20 tablet 04/20/20 HPI Gestational Age: 39 Reason(s) for Admission: Ceasarean Section-Repeat, Tubal Ligation Procedures: Ultrasound Intrapartum Procedure(s): : Low Cervical, Transverse Hospital Course Hospital Course: routine post op Results Laboratory Results: WBC 7.0 10^3/uL (4.0-10.5) 04/19/20 07:39 RBC 3.50 10^6/uL (3.72-5.28) L 04/19/20 07:39 Hgb 10.9 g/dL (12.0-15.5) L 04/19/20 07:39 Hct 32.4 % (36.0-47.0) L 04/19/20 07:39 MCV 93 fl (80-97) 04/19/20 07:39 MCH 31.0 pg (27.0-33.4) 04/19/20 07:39 MCHC 33.5 g/dL (32.0-36.0) 04/19/20 07:39 RDW 13.3 % (11.5-14.0) 04/19/20 07:39 Plt Count 118 10^3/uL (150-450) L 04/19/20 07:39 Lymph % (Auto) 15.0 % (13-45) 04/16/20 14:55 [place] % (Auto) 5.3 % (3-13) 04/16/20 14:55 Eos % (Auto) 0.5 % (0-6) 04/16/20 14:55 Baso % (Auto) 0.4 % (0-2) 04/16/20 14:55 Absolute Neuts (auto) 7.8 10^3/uL (1.7-8.2) 04/16/20 14:55 Absolute Lymphs (auto) 1.5 10^3/uL (0.5-4.7) 04/16/20 14:55 Absolute Monos (auto) 0.5 10^3/uL (0.1-1.4) 04/16/20 14:55 Absolute Eos (auto) 0.0 10^3/uL (0.0-0.6) 04/16/20 14:55 Absolute Basos (auto) 0.0 10^3/uL (0.0-0.2) 04/16/20 14:55 Seg Neutrophils % 78.8 % (42-78) H 04/16/20 14:55 Urine Color [place] 04/17/20 05:45 Urine Appearance CLOUDY 04/17/20 05:45 Urine pH 6.0 (5.0-9.0) 04/17/20 05:45 Ur Specific [place] 1.021 04/17/20 05:45 Urine Protein 30 mg/dL (NEGATIVE) H 04/17/20 05:45 Urine Glucose (UA) NEGATIVE mg/dL (NEGATIVE) 04/17/20 05:45 Urine Ketones NEGATIVE mg/dL (NEGATIVE) 04/17/20 05:45 Urine Blood NEGATIVE (NEGATIVE) 04/17/20 05:45 Urine Nitrite NEGATIVE (NEGATIVE) 04/17/20 05:45 Urine Bilirubin NEGATIVE (NEGATIVE) 04/17/20 05:45 Urine Urobilinogen NEGATIVE mg/dL (<2.0) 04/17/20 05:45 Ur Leukocyte Esterase TRACE (NEGATIVE) H 04/17/20 05:45 Urine WBC (Auto) 1 /HPF 04/17/20 05:45 Urine RBC (Auto) 2 /HPF 04/17/20 05:45 Urine Bacteria (Auto) TRACE /HPF 04/17/20 05:45 Squamous Epi Cells Auto 65 /HPF 04/17/20 05:45 Urine Mucus (Auto) MOD /LPF 04/17/20 05:45 Urine Ascorbic Acid NEGATIVE (NEGATIVE) 04/17/20 05:45 Urine Opiates Screen NEGATIVE 04/17/20 05:45 Urine Methadone Screen NEGATIVE 04/17/20 05:45 Ur Barbiturates Screen NEGATIVE 04/17/20 05:45 Ur Phencyclidine Scrn NEGATIVE 04/17/20 05:45 Ur Amphetamines Screen NEGATIVE 04/17/20 05:45 U Benzodiazepines Scrn NEGATIVE 04/17/20 05:45 Urine Cocaine Screen NEGATIVE 04/17/20 05:45 U Marijuana (THC) Screen UNCONFIRMED POSITIVE 04/17/20 05:45 SARS-CoV-2 (PCR) NEGATIVE (NEGATIVE) 04/17/20 08:35 Blood Type O POSITIVE 04/16/20 14:55 Antibody Screen NEGATIVE 04/16/20 14:55 Plan Health Concerns: post op pain Plan of Treatment: discharge home, regular diet Goals: no complications Time Spent: Less than 30 Minutes
[2020-04-20 12:28] VITALS: BP 115/74
== END 2020-04-20 13:28 | disposition home or self-care (01) | DRG 784 ==
LOC: 2S 04-17 05:09
PROVIDERS: ADMIT Obstetrics & Gynecology Gynecology; ATTEND Obstetrics & Gynecology
PROC: 10D00Z1 Extraction of Products of Conception, Low, Open Approach (ICD-10-PCS; principal; 2020-04-17)
PROC: 0UL70CZ Occlusion of Bilateral Fallopian Tubes with Extraluminal Device, Open Approach (ICD-10-PCS; 2020-04-17)
PROC: 3E0234Z Introduction of Serum, Toxoid and Vaccine into Muscle, Percutaneous Approach (ICD-10-PCS; 2020-04-20)
DX: O99.324 Drug use complicating childbirth (principal); D62 Acute posthemorrhagic anemia; O34.211 Maternal care for low transverse scar from previous cesarean delivery; Z37.0 Single live birth; O99.334 Smoking (tobacco) complicating childbirth; F17.210 Nicotine dependence, cigarettes, uncomplicated; Z30.2 Encounter for sterilization; O99.02 Anemia complicating childbirth; Z88.0 Allergy status to penicillin; O99.344 Other mental disorders complicating childbirth; F41.9 Anxiety disorder, unspecified; F32.9 Major depressive disorder, single episode, unspecified; Z20.828 Contact with and (suspected) exposure to other viral communicable diseases; F12.90 Cannabis use, unspecified, uncomplicated; Z3A.39 39 weeks gestation of pregnancy; Z23 Encounter for immunization
CPT/HCPCS: 1961; 36415; 59025; 80307; 80349; 81001; 85025; 85027; 86850; 86900; 86901; 87635; 90715; 94760; 94799; C9803; G0480; J0131; J0461; J1170; J1885; J2250; J2370; J2405; J2590; J2704; J3010; J3490; J7120

== ENCOUNTER 2020-11-19 10:27 | Emergency (ER) | payer MEDICAID ==
[2020-11-19 10:38] VITALS: BP 123/69
== END 2020-11-19 11:48 | disposition left against medical advice (07) ==
LOC: ER 10:27
DX: Z53.21 Procedure and treatment not carried out due to patient leaving prior to being seen by health care provider (principal)